=== PATIENT | male | born 1965 | race Caucasian/White ===

== ENCOUNTER → 2017-02-06 | Outpatient (CLI) | payer MEDICARE ==
[2017-02-06 11:12] VITALS: BP 145/84; PULSE 56; RESP 16; TEMP 96.8; BMI 29.5
--- NOTE | 2017-03-12 01:19 | P.PN ---
Progress Note - Text DATE OF SERVICE: 02/06/2017 CHIEF COMPLAINT: Bariatric assessment. HISTORY OF PRESENT ILLNESS: Blaise Torres is a 52-year-old gentleman last seen [facility] almost one year ago. At his height of 5 foot 10, his ideal body weight is 173 pounds. His highest weight was 360 pounds. Today, he comes in weighing 205 pounds. He has lost 39 pounds since his last evaluation over almost 9 months ago. Overall, he has achieved 83% excess weight loss. His body mass index has been reduced from 51.8 down to 29.5. Total BMI point reduction is 22.3 points. He is only overweight by 32 pounds. Today he comes in mostly without any hunger. He reports stomach upset which has been worse with his weight loss. He feels "My band may have slipped." He is currently at a plateau. Separately, he also reports new onset of blood in his stools and epigastric abdominal pain. His last colonoscopy was a year ago. PAST MEDICAL HISTORY: 1. Chronic pain syndrome. 2. Morbid obesity. 3. Hypertension. 4. Vitamin D deficiency. 5. Asthma. 6. Gastroesophageal reflux disease. 7. Fibromyalgia. 8. Dyslipidemia. 9. Liver disease. 10. Mitral valve prolapse. 11. Anxiety. 12. Bipolar. 13. Depression. PAST SURGICAL HISTORY: 1. Adjustable gastric band placement. 2. Left humeral plate placement. 3. Vasectomy. 4. Cholecystectomy. 5. Colonoscopy. MEDICATIONS: 1. Klonopin. 2. Kenalog. 3. Ativan. 4. Cymbalta. 5. Campral. 6. Topamax. 7. Lyrica. 8. Omeprazole. 9. MS Contin. 10. Oxybutynin. ALLERGIES: BEE VENOM and CELEBREX. SOCIAL HISTORY: Former tobacco user. He does admit to medicinal marijuana use. FAMILY HISTORY: Notable for morbid obesity including bipolar disorder. REVIEW OF SYSTEMS: CONSTITUTIONAL: [place] body weight of 173 pounds. Highest weight of 360 pounds. A total weight loss lifetime of 155 pounds. Percent excess weight loss of 83%. Body mass index reduced from 51.8 down to 29.5. Total BMI point reduction of 22. GENITOURINARY: He had acute renal insufficiency from his medications for which his diuretic has been discontinued. PSYCH: History of psychotic event with recent mental hospitalization within the last 6 to 8 months. GASTROINTESTINAL: Change in bowel habits. Reports increased diarrhea and food intolerance. Has blood in stools. Has increased epigastric abdominal pain. Reports low appetite and denies any hunger. HEENT: No troubles with hearing however, he does wear glasses. ENDOCRINE: No reports of thyroid disorder or diabetes. CARDIOVASCULAR: History of mitral valve prolapse including hypertension and dyslipidemia. He also reports having chest pain requiring hospitalization within the last 9 months. RESPIRATORY: Denies any recent pneumonia, however, does have asthma. MUSCULOSKELETAL: Reports fibromyalgia, including diffuse pain, particularly of the left shoulder. NEURO: History of intermittent headaches. Denies any stroke or seizure disorders. PHYSICAL EXAM: VITAL SIGNS: 96.8, 66, 16, 145/84, 5 foot 10, 205 pounds. Body mass index of 29.5. ABDOMEN: Soft, mild tenderness along the epigastrium. GENERAL: Well-developed pleasant male in no acute distress. SKIN: Eczematous changes noted along the right palmar aspect of the thumb. HEENT: No scleral icterus. Extraocular movements grossly intact. Moist buccal mucosa. NECK: Supple without lymphadenopathy. CHEST: Unlabored respirations with equal bilateral excursions. CARDIOVASCULAR: Regular rate and rhythm. MUSCULOSKELETAL: No clubbing or cyanosis. NEURO: No focal or lateralizing signs. PSYCH: Appropriate affect. Alert and oriented to person, place and time. ASSESSMENT: 1. Morbid obesity due to excess calories, now resolved. 2. Body mass reduced from 51.8 down to 29.5. 3. History of adjustable gastric band. 4. History of acute renal insufficiency from hypertensive medications. 5. Hypertension. 6. Bipolar disorder with recent psychotic episode, stable. 7. Prior history of alcoholism. 8. Change in bowel habits. 9. Personal history of colon polyps. 10. History of intermittent angina. 11. Epigastric abdominal pain. 12. History of gastrointestinal bleed of unclear etiology. 13. Massive weight loss of 155 pounds. PLAN: 1. With his epigastric abdominal pain including gastrointestinal bleed, recommend upper and lower endoscopy. 2. He also had history of colon polyps on his last colonoscopy and warrants further evaluation. 3. He does report potential slippage of his band with his epigastric abdominal pain for which upper endoscopy is advised. 4. Recommend a bariatric metabolic panel followup. 5. Recommend followup upon completion of his upper endoscopy including bariatric labs.
== END | disposition home or self-care (01) ==
LOC: BARWHC3 09:42
PROVIDERS: ATTEND Surgery Plastic and Reconstructive Surgery
DX: Z48.815 Encounter for surgical aftercare following surgery on the digestive system (principal); Z98.84 Bariatric surgery status; Z68.29 Body mass index [BMI] 29.0-29.9, adult; I10 Essential (primary) hypertension; F31.9 Bipolar disorder, unspecified; F23 Brief psychotic disorder; F10.21 Alcohol dependence, in remission; Z87.898 Personal history of other specified conditions; I20.8 Other forms of angina pectoris; R10.13 Epigastric pain; Z79.899 Other long term (current) drug therapy; L30.9 Dermatitis, unspecified; M79.7 Fibromyalgia; R51 Headache; G89.4 Chronic pain syndrome; J45.909 Unspecified asthma, uncomplicated; I34.1 Nonrheumatic mitral (valve) prolapse; F41.9 Anxiety disorder, unspecified; K21.9 Gastro-esophageal reflux disease without esophagitis; Z88.8 Allergy status to other drugs, medicaments and biological substances; Z91.030 Bee allergy status; F12.90 Cannabis use, unspecified, uncomplicated; R19.7 Diarrhea, unspecified; K92.1 Melena; T50.995A Adverse effect of other drugs, medicaments and biological substances, initial encounter; N28.89 Other specified disorders of kidney and ureter
CPT/HCPCS: 99211

== ENCOUNTER → 2017-03-05 | Day surgery (SDC) | payer MEDICARE ==
[2017-03-03 10:31] VITALS: BMI 28.7
[~2017-03-05] MED LIST: LACTATED RINGERS 1,000 ML IV SCH; LIDOCAINE 1% 20 ML VIAL (10MG/ML) FOR IV START INTRADERMA ONE; LIDOCAINE 1% INJ 10MG/ML (20 ML MDV) ONE; PROPOFOL 10 MG/ML 20 ML VIAL IV ONE
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
[2017-03-05 09:19] VITALS: TEMP 97.6
[2017-03-05 10:37] VITALS: RESP 18
--- NOTE | 2017-03-05 10:41 | P.PCN ---
Date of Procedure: 03/05/17 Description of Procedure: PREOPERATIVE DIAGNOSES: 1. Personal history of colon polyps. 2. Change in bowel habits. POSTOPERATIVE DIAGNOSES: 1. Personal history of colon polyps. 2. Change in bowel habits. PROCEDURE PERFORMED: 1. Colonoscopy to the ileocecal valve and appendiceal orifice. SURGEON: Dr. Josefa Alfaro. ANESTHESIA: MAC. INDICATIONS: The patient is a 52-year-old gentleman whose last colonoscopy was in 2016. Has a personal history of multiple colon polyps. Additionally he comes in now with change in bowel habits. Benefits and risks were described. Benefits and risks were described. Informed consent was obtained. DESCRIPTION: Patient was brought to the endoscopy suite and laid in the left lateral decubitus position. After adequate IV sedation, the rectum was examined with 2% lidocaine jelly. The rectal tone was within normal limits. The prostate was smooth and without nodularity. No lesions were palpated in the rectal vault. Olympus colonoscope was advanced until the ileocecal valve and appendiceal orifice were clearly viewed. The prep was excellent with clear visualization of mucosal mike. Slowly, the scope was withdrawn to inspect each mucosal fold. No evidence of active diverticulosis were encountered or bleeding. Retroflexion of the scope confirmed no evidence of prolapsed internal hemorrhoids. The colon was desufflated. The patient tolerated the procedure well. FINDINGS: 1. Prostate unremarkable. 2. No focal colitis. 3. No prolapsed internal/external hemorrhoids. 4. Prostate unremarkable. 5. No diverticulosis. RECOMMENDATIONS: 1. Follow-up colonoscopy in 5 years, 2021.
[2017-03-05 10:53] VITALS: BP 120/78; PULSE 89
--- NOTE | 2017-03-05 20:06 | P.PCN ---
Date of Procedure: 03/05/17 Description of Procedure: PREOPERATIVE DIAGNOSIS: Gastroesophageal reflux disease. History of adjustable gastric band. POSTOPERATIVE DIAGNOSIS: Gastroesophageal reflux disease. History of adjustable gastric band. Diaphragmatic hiatal hernia. Diffuse gastritis. Duodenitis. Posterior gastric prolapse along gastric band. OPERATION: Esophagogastroduodenoscopy with biopsies along antrum and duodenum. SURGEON: Josefa Alfaro MD ANESTHESIA: MAC. INDICATIONS: The patient is a 52-year-old male who presents with a history of reflux disease. Benefits and risks of the procedure were described. Informed consent was obtained. DESCRIPTION: The patient was brought into the endoscopy suite and laid in the left lateral decubitus position. An Olympus gastroscope was passed along the posterior oropharynx down to the distal esophagus where the squamocolumnar junction was encountered at 35 cm from the incisors. The stomach was entered and minimal bile reflux was found. Additional findings are listed below. Biopsies with cold forceps were obtained of the antrum. The first through third portion of the duodenum was examined and remarkable for duodenitis. Moderate gastritis was found along the antrum. Retroflexion of the scope confirmed Hill grade II lower esophageal valve. A large gastric pouch with posterior gastric prolapse was identified. The squamocolumnar junction demostrated acute LA grade B erosive esophagitis. The stomach was desufflated. The patient tolerated the procedure well. FINDINGS: Squamocolumnar junction 43 cm from the incisors. Diaphragmatic hiatal hernia, 3 cm. Squamocolumnar junction 40 cm from the incisors. Diffuse gastritis along the antrum. Posterior gastric prolapse along gastric band. Hill grade II lower esophageal valve. LA grade B erosive esophagitis. Active duodenitis. RECOMMENDATIONS: Further recommendations pending results of pathology report. Upper endoscopy as needed. Plan - Discharge Summary Discharge Medication List Triamcinolone 0.1% Cream [Kenalog] 1 applic TOPICAL BID PRN 04/05/15 [History] DULoxetine HCL [Cymbalta] 60 mg PO BID 06/08/15 [History] clonazePAM [KlonoPIN] 0.5 mg PO DAILY PRN 02/07/16 [History] LORazepam [Ativan] 1 mg PO BID 08/01/16 [History] Oxybutynin Xl [Ditropan XL] 5 mg PO DAILY #30 tab.er.24 02/13/17 [Rx] Morphine Sulfate [Ms Contin] 15 mg PO BID 03/03/17 [History] Pregabalin [Lyrica] 50 mg PO BID 03/03/17 [History] Topiramate [Topamax] 100 mg PO BID 03/03/17 [History] Omeprazole 40 mg PO DAILY #90 capsule. 03/12/17 [Rx] Meloxicam [Mobic] 15 mg PO DAILY 04/03/17 [History] Follow up Appointment(s)/Referral(s): Josefa Alfaro MD [STAFF PHYSICIAN] - 03/12/17 Patient Instructions/Handouts: *[facility] - (Anesthesia) Endoscopy Discharge Instructions, Gastritis (GEN), Colonoscopy (DC), Gastroesophageal Reflux Disease (DC), Upper Endoscopy (DC) Discharge Disposition: HOME SELF-CARE
== END | disposition home or self-care (01) ==
LOC: ORWHC2ENDO 09:01
PROVIDERS: ATTEND Surgery Plastic and Reconstructive Surgery
DX: K29.50 Unspecified chronic gastritis without bleeding (principal); B96.81 Helicobacter pylori [H. pylori] as the cause of diseases classified elsewhere; K21.9 Gastro-esophageal reflux disease without esophagitis; M79.7 Fibromyalgia; Z87.891 Personal history of nicotine dependence; I10 Essential (primary) hypertension; E78.5 Hyperlipidemia, unspecified; M19.90 Unspecified osteoarthritis, unspecified site; Z86.010 Personal history of colon polyps; G47.33 Obstructive sleep apnea (adult) (pediatric); Z99.89 Dependence on other enabling machines and devices; F39 Unspecified mood [affective] disorder; Z79.891 Long term (current) use of opiate analgesic; Z79.899 Other long term (current) drug therapy
CPT/HCPCS: 88305; 88342; 45378; 43239; J2001; J2704

== ENCOUNTER → 2017-03-12 | Outpatient (CLI) | payer MEDICARE ==
[2017-03-12 15:14] VITALS: BP 133/78; PULSE 57; RESP 16; TEMP 97.8; BMI 29.2
--- NOTE | 2017-04-07 20:53 | P.PN ---
Progress Note - Text DATE OF SERVICE: 03/12/2017 CHIEF COMPLAINT: Bariatric assessment. HISTORY OF PRESENT ILLNESS: Blaise Torres is a 52-year-old gentleman with long-standing history of adjustable gastric band. He had returned back to the [facility] a little over a month ago complaining of new onset epigastric abdominal pain including worsening gastroesophageal reflux disease. He reports "I feel my band may have slipped." He just completed an upper endoscopy. Findings include a dilated gastric pouch. Additionally, features of gastroesophageal reflux disease was also identified. Since his procedure, he comes in with similar complaints. PAST MEDICAL HISTORY: 1. Chronic pain syndrome. 2. Morbid obesity. 3. Hypertension. 4. Vitamin D deficiency. 5. Asthma. 6. Gastroesophageal reflux disease. 7. Fibromyalgia. 8. Dyslipidemia. 9. Liver disease. 10. Mitral valve prolapse. 11. Anxiety. 12. Bipolar disorder. 13. Depression. PAST SURGICAL HISTORY: 1. Adjustable gastric band placement. 2. Left humeral plate placement. 3. Vasectomy. 4. Cholecystectomy. 5. Colonoscopy. 6. Upper endoscopy. MEDICATIONS: 1. Klonopin. 2. Kenalog. 3. Ativan. 4. Cymbalta. 5. Campral. 6. Topamax. 7. Lyrica. 8. Omeprazole. 9. MS Contin. 10. Oxybutynin. ALLERGIES: BEE VENOM and CELEBREX. SOCIAL HISTORY: Former tobacco user. He does admit to medicinal marijuana use. FAMILY HISTORY: Notable for morbid obesity including bipolar disorder. REVIEW OF SYSTEMS: CONSTITUTIONAL: [place] body weight of 173 pounds. Highest weight of 360 pounds. Present weight of 203 pounds. Lifetime maintained weight loss of 157 pounds. He has lost 2 pounds in one month. Body mass index is reduced from 51.8 down to 29.2. Total BMI point reduction of 22.5. He is only overweight by 30 pounds. Percent excess weight loss of 84% achieved. GASTROINTESTINAL: Has worsening gastroesophageal reflux disease. GENITOURINARY: He had acute renal insufficiency from his medications for which his diuretic has been discontinued. PSYCH: History of psychotic event with recent mental hospitalization within the last 6 to 8 months. HEENT: No troubles with hearing however, he does wear glasses. ENDOCRINE: No reports of thyroid disorder or diabetes. CARDIOVASCULAR: History of mitral valve prolapse including hypertension and dyslipidemia. He also reports having chest pain requiring hospitalization within the last 9 months. RESPIRATORY: Denies any recent pneumonia, however, does have asthma. MUSCULOSKELETAL: Reports fibromyalgia, including diffuse pain, particularly of the left shoulder. NEURO: History of intermittent headaches. Denies any stroke or seizure disorders. PHYSICAL EXAM: VITAL SIGNS: 97.8, 57, 16, 133/78, 5 foot 10, 203 pounds. Body mass index 29.2. ABDOMEN: Soft, mild tenderness along the epigastrium. Port without palpable tenderness along the port site. GENERAL: Well-developed pleasant male in no acute distress. HEENT: No scleral icterus. Extraocular movements grossly intact. Moist buccal mucosa. NECK: Supple without lymphadenopathy. CHEST: Unlabored respirations with equal bilateral excursions. CARDIOVASCULAR: Regular rate and rhythm. MUSCULOSKELETAL: No clubbing or cyanosis. NEURO: No focal or lateralizing signs. PSYCH: Appropriate affect. Alert and oriented to person, place and time. STUDIES: Upper endoscopy completed consistent with a posterior gastric prolapse. PATHOLOGY: Pathology consistent with chronic active gastritis and positive H. pylori gastritis. ASSESSMENT: 1. Morbid obesity due to excess calories, now resolved. 2. Body mass index reduced from 51.8 down to 29.2. 3. History of adjustable gastric band. 4. Helicobacter pylori gastritis. 5. Epigastric abdominal pain. PLAN: 1. He has a mechanical problem with his band whereby gastric prolapse was identified upon upper endoscopy. Also recommend upper GI swallow. 2. As he reports burning sensation this is likely also secondary to H. pylori gastritis. Triple treatment including omeprazole, Biaxin and clarithromycin was written on his behalf for at least 2 weeks course. 3. Alternatives including removing fluid out of his band was also described; however, that puts him at risk for moderate weight gain. We have discussed alternatives whereby treatment of H. pylori gastritis is deemed necessary. 4. He has also reported previous troubles with this band with prior revisions for which he would like to look for alternatives for weight loss options. Again, as he has mechanical problem with his band, surgical correction such as revision to another procedure may be amenable, however only after treatment of H. pylori gastritis and symptom resolution. 5. He also completed a lower endoscopy for history of colon polyps for which findings were negative for additional polyps as a result recommend follow-up for his colonoscopy in 5 years in 2021.
== END | disposition home or self-care (01) ==
LOC: BARWHC3 14:08
PROVIDERS: ATTEND Surgery Plastic and Reconstructive Surgery
DX: Z48.815 Encounter for surgical aftercare following surgery on the digestive system (principal); F12.90 Cannabis use, unspecified, uncomplicated; Z68.29 Body mass index [BMI] 29.0-29.9, adult; K29.60 Other gastritis without bleeding; B96.81 Helicobacter pylori [H. pylori] as the cause of diseases classified elsewhere; K31.89 Other diseases of stomach and duodenum; T85.9XXA Unspecified complication of internal prosthetic device, implant and graft, initial encounter; Z72.0 Tobacco use; Z98.84 Bariatric surgery status; Z88.8 Allergy status to other drugs, medicaments and biological substances; Z91.030 Bee allergy status; K21.9 Gastro-esophageal reflux disease without esophagitis; G89.4 Chronic pain syndrome; F41.9 Anxiety disorder, unspecified; M79.7 Fibromyalgia; F31.9 Bipolar disorder, unspecified
CPT/HCPCS: 99211

== ENCOUNTER 2017-04-07 06:13 | Inpatient (IN) | payer MEDICARE ==
[2017-04-03 12:15] VITALS: BMI 28.7
[~2017-04-07 06:13] MED LIST changes: +DEXAMETHASONE SOD PHOSPHATE 10 MG/ML 1 ML VIAL IV ONE; -LIDOCAINE 1% 20 ML VIAL (10MG/ML) FOR IV START INTRADERMA ONE; -LIDOCAINE 1% INJ 10MG/ML (20 ML MDV) ONE; +ONDANSETRON 4 MG/2 ML VIAL IVP ONE; -PROPOFOL 10 MG/ML 20 ML VIAL IV ONE; +SCOPOLAMINE 1.5MG/72HR PATCH TRANSDERM ONE; +ceFAZolin 2 GM in SODIUM CHLORIDE 0.9% 100 ML IVPB ONE
[2017-04-07 06:41] VITALS: RESP 16
[2017-04-07] MEDS ORDERED: LIDOCAINE 1% 20 ML VIAL (10MG/ML) FOR IV START INTRADERMA ONE (07:04)
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
[2017-04-07] MEDS ORDERED: PROPOFOL 10 MG/ML 20 ML VIAL IV ONE (07:34)
[2017-04-07] MEDS ORDERED: NEOSTIGMINE 1 MG/ML 10 ML VIAL ONE (07:34)
[2017-04-07] MEDS ORDERED: MIDAZOLAM 2 MG/2 ML VIAL ONE (07:34)
[2017-04-07] MEDS ORDERED: SUCCINYLCHOLINE CHLORIDE 100 MG/5 ML SYR IV ONE (07:34)
[2017-04-07] MEDS ORDERED: GLYCOPYRROLATE 0.2 MG/ML 2 ML VIAL ONE (07:34)
[2017-04-07] MEDS ORDERED: fentaNYL (PF) 50 MCG/ML 2 ML AMP ONE (07:34)
[2017-04-07] MEDS ORDERED: ATROPINE SULFATE 0.4 MG/ML 1 ML VIAL ONE (07:34)
[2017-04-07] MEDS ORDERED: LIDOCAINE 1% INJ 10MG/ML (20 ML MDV) ONE (07:34)
[2017-04-07] MEDS ORDERED: ROCURONIUM BROMIDE 10 MG/ML 10 ML VIAL IV ONE (07:34)
[2017-04-07] MEDS ORDERED: ePHEDrine 50 MG/ML 1 ML AMP ONE (07:34)
[2017-04-07] MEDS ORDERED: BUPIVACAIN-EPI 0.25%-1:200,000 30 ML VIAL SQ ONE (07:54)
--- NOTE | 2017-04-07 08:56 | P.OP ---
Date of Procedure: 04/07/17 Description of Procedure: SURGEON: DARLEEN GASTELUM MD ACTIVITY THERAPY SPECIALIST: HEIDY COFFEY PREOPERATIVE DIAGNOSES: 1. Morbid obesity due to excess calories, now resolved. 2. Body mass reduced from 51.8 down to 28.7. 3. History of adjustable gastric band. 4. History of acute renal insufficiency from hypertensive medications. 5. Hypertension. 6. Bipolar disorder with recent psychotic episode, stable. 7. Prior history of alcoholism. 8. Change in bowel habits. 9. Personal history of colon polyps. 10. History of intermittent angina. 11. Epigastric abdominal pain. 12. History of gastrointestinal bleed of unclear etiology. 13. Massive weight loss of 155 pounds. 14. Gastric band prolapse, posterior. 15. History of H. pylori gastritis. POSTOPERATIVE DIAGNOSES: 1. Morbid obesity due to excess calories, now resolved. 2. Body mass reduced from 51.8 down to 28.7. 3. History of adjustable gastric band. 4. History of acute renal insufficiency from hypertensive medications. 5. Hypertension. 6. Bipolar disorder with recent psychotic episode, stable. 7. Prior history of alcoholism. 8. Change in bowel habits. 9. Personal history of colon polyps. 10. History of intermittent angina. 11. Epigastric abdominal pain. 12. History of gastrointestinal bleed of unclear etiology. 13. Massive weight loss of 155 pounds. 14. Gastric band prolapse, posterior. 15. History of H. pylori gastritis. 16. Early fracture of gastric port tubing along fascia. OPERATION: 1. Laparoscopic removal of adjustable gastric band and all components. 2. Intraoperative esophagogastroduodenoscopy with cold forceps biopsies along antrum. ANESTHESIA: General with 60mL 0.25% Sensorcaine with epinephrine. ESTIMATED BLOOD LOSS: 2 mL SPECIMENS REMOVED: Adjustable gastric band and components. COMPLICATIONS: None. INDICATIONS: The patient is a 52-year-old male who presents with prior history of adjustable gastric band. Diagnostic studies were consistent with posterior gastric prolapse as well as severe epigastric abdominal pain. Surgical options were described including revision versus removal of his band. As he has persistent pain and discomfort from the band, he had elected for removal of the adjustable gastric band and port including all components. Benefits and risks of the procedure were described. Informed consent was obtained. DESCRIPTION: The patient was brought into the operating room and laid in supine position. Chemical DVT prophylaxis were given. Patient was brought into the operating room, transferred a split-leg table. After general induction, which was uncomplicated, the abdomen was prepped and draped in standard sterile fashion. The abdomen was prepped and draped in standard sterile fashion using ChloraPrep as well as Ioban draping. Prior to incision, a timeout protocol was confirmed with the surgical team regarding patient's name, procedure to be performed, including preoperative medications. A transverse incision was made approximately 18.5 cm distal to the xiphoid off to the left of the midline from his prior cicatrix. A 0 degree 5 mm trocar entry was performed and entered into the peritoneal cavity. The abdomen was insufflated to 15 mmHg pressure, which he tolerated well. Diagnostic laparoscopy demonstrated no hepatomegaly or fatty liver disease. The port was palpated at the lateral left costal margin and the band was found underneath the liver. A 15 mm port was placed along the left costal margin. Next a 5 mm port was placed at the left midclavicular line. The patient was placed in steep reverse Trendelenburg position. The port was followed with its tubing to the actual band. The gastrohepatic ligament was actually scarred from her prior surgery. The posterior portion of the stomach was prolapsed posteriorly around the ALLERGAN band. Using electro-Bovie cautery, the cicatrix of the port was incised. The band was then freed. The band was unbuckled and cut. The tubing was cut approximately 5 cm distal to the actual adapter. The band was removed in total without injury to the stomach. Hemostasis was excellent. The port was removed from the abdominal cavity via the 15 mm port. Next, attention was brought to the abdominal wall where the lap band port was palpated. An incision was made over the prominence of the port using a #11 blade. Skin was localized with anesthetic. Electro-Bovie cautery was used to enter the capsule around the port. The sutures were cut and the port was removed in total along with the tubing. The tubing was inspected with early fracture of the port tubing along the entry port at the fascia and abdominal cavity secondary to acute angulation. Diagnostic laparoscopy demonstrated complete removal of all foreign body. I then went to the head of the bed to perform intraoperative esophagogastroduodenoscopy to evaluate for gastritis and any full thickness injury to the stomach. An Olympus gastroscope was passed from the posterior oropharynx down to the esophagus, where the squamocolumnar junction was found LA grade A erosive esophagitis, chronic changes. The stomach was entered and bile reflux was found as aspirated. Chronic gastritis was found along the antrum without gastric ulcers or duodenitis or duodenal ulcers. Retroflexion of the scope confirmed a Hill grade 2 lower esophageal valve. No full-thickness erosion from the prior band was encountered. No blood was found within the stomach. Mild gastritis with identified and cold forceps biopsies obtained along the antrum. The stomach was desufflated. The patient tolerated the procedure well. Again, no evidence of leak was encountered from the removal of the band. Along the left upper quadrant 15 mm port site, Beto Stewart 0 Vicryl sutures were used to close the fascia. I then went back to the patient's bedside after re-scrubbing. All instruments and pneumoperitoneum were evacuated from the abdominal cavity. The port extraction site was hemostatic. The port site was irrigated using normal saline and hydrogen peroxide approximately, 50 mL. The skin was closed in layers using 0-Vicryl for the deep dermis and subcutaneous tissue. The rest of the incisions were reapproximated using 4-0 Monocryl in a subcuticular interrupted fashion. Optifoam dressing was placed over the port extraction site and along the left upper quadrant to decrease risk for surgical site infection. At the end of the procedure, needle, sponge and instrument count was verified correct by the land survey technician. The patient had tolerated the procedure well. An abdominal binder was placed. The patient was transferred to Postanesthesia Care Unit in stable condition. Postoperative findings were discussed with the patient's family who were pleased with the level of care. FINDINGS: 1. Posterior gastric prolapse. 2. LA grade A erosive esophagitis chronic. 3. Hill grade 2 lower esophageal valve. 4. No evidence of bilateral inguinal hernias. 5. Fracture of gastric port and tubing from acute angulation along the entry point of the abdominal wall. Plan - Discharge Summary Discharge Medication List Triamcinolone 0.1% Cream [Kenalog] 1 applic TOPICAL BID PRN 04/05/15 [History] DULoxetine HCL [Cymbalta] 60 mg PO BID 06/08/15 [History] clonazePAM [KlonoPIN] 0.5 mg PO DAILY PRN 02/07/16 [History] LORazepam [Ativan] 1 mg PO BID 08/01/16 [History] Oxybutynin Xl [Ditropan XL] 5 mg PO DAILY #30 tab.er.24 02/13/17 [Rx] Morphine Sulfate [Ms Contin] 15 mg PO BID 03/03/17 [History] Pregabalin [Lyrica] 50 mg PO BID 03/03/17 [History] Topiramate [Topamax] 100 mg PO BID 03/03/17 [History] Omeprazole 40 mg PO DAILY #90 capsule. 03/12/17 [Rx] Meloxicam [Mobic] 15 mg PO DAILY 04/03/17 [History]
[2017-04-07] MEDS ORDERED: NALOXONE 0.4 MG/ML 1 ML VIAL IV PRN (09:01)
[2017-04-07] MEDS ORDERED: ONDANSETRON 4 MG/2 ML VIAL IVP PRN (09:01)
[2017-04-07] MEDS ORDERED: METOCLOPRAMIDE 5 MG/ML 2 ML VIAL IVP PRN (09:01)
--- NOTE | 2017-04-07 09:01 | P.DS ---
Providers Date of admission: 04/07/17 06:13 Expected date of discharge: 04/07/17 Attending physician: Josefa Alfaro Primary care physician: Yassine Hansen - Discharge Diagnosis(es) (1) H/O laparoscopic adjustable gastric banding Current Visit: Yes Status: Acute (2) Complications of bariatric procedures Current Visit: Yes Status: Acute (3) Epigastric abdominal pain Current Visit: Yes Status: Acute (4) Seizure disorder Current Visit: Yes Status: Acute (5) Hypertension Current Visit: Yes Status: Acute Hospital Course: POSTOPERATIVE DIAGNOSES: 1. Morbid obesity due to excess calories, now resolved. 2. Body mass reduced from 51.8 down to 28.7. 3. History of adjustable gastric band. 4. History of acute renal insufficiency from hypertensive medications. 5. Hypertension. 6. Bipolar disorder with recent psychotic episode, stable. 7. Prior history of alcoholism. 8. Change in bowel habits. 9. Personal history of colon polyps. 10. History of intermittent angina. 11. Epigastric abdominal pain. 12. History of gastrointestinal bleed of unclear etiology. 13. Massive weight loss of 155 pounds. 14. Gastric band prolapse, posterior. 15. History of H. pylori gastritis. 16. Early fracture of gastric port tubing along fascia. INDICATIONS: The patient is a 52-year-old male who presents with prior history of adjustable gastric band. Diagnostic studies were consistent with posterior gastric prolapse as well as severe epigastric abdominal pain. Surgical options were described including revision versus removal of his band. As he has persistent pain and discomfort from the band, he had elected for removal of the adjustable gastric band and port including all components. Benefits and risks of the procedure were described. Informed consent was obtained. Postoperatively, he was tolerating diet. His pain was well-controlled. Pertinent Studies: None. Procedures: OPERATION: 1. Laparoscopic removal of adjustable gastric band and all components. 2. Intraoperative esophagogastroduodenoscopy with cold forceps biopsies along antrum. Patient Condition at Discharge: Good Plan - Discharge Summary New Discharge Prescriptions: Hydrocodone/Acetaminophen [[place] 5-325] 1 - 2 each PO Q6HR PRN #30 tab PRN Reason: Pain Discharge Medication List Triamcinolone 0.1% Cream [Kenalog] 1 applic TOPICAL BID PRN 04/05/15 [History] DULoxetine HCL [Cymbalta] 60 mg PO BID 06/08/15 [History] clonazePAM [KlonoPIN] 0.5 mg PO DAILY PRN 02/07/16 [History] LORazepam [Ativan] 1 mg PO BID 08/01/16 [History] Oxybutynin Xl [Ditropan XL] 5 mg PO DAILY #30 tab.er.24 02/13/17 [Rx] Morphine Sulfate [Ms Contin] 15 mg PO BID 03/03/17 [History] Pregabalin [Lyrica] 50 mg PO BID 03/03/17 [History] Topiramate [Topamax] 100 mg PO BID 03/03/17 [History] Omeprazole 40 mg PO DAILY #90 capsule.dr 03/12/17 [Rx] Meloxicam [Mobic] 15 mg PO DAILY 04/03/17 [History] Hydrocodone/Acetaminophen [[place] 5-325] 1 - 2 each PO Q6HR PRN #30 tab 04/07/17 [Rx] Follow up Appointment(s)/Referral(s): Josefa Alfaro MD [STAFF PHYSICIAN] - 04/10/17 (Bariatric center) Patient Instructions/Handouts: Abdominal Binder (GEN), Exploratory Laparoscopy (DC) Activity/Diet/Wound Care/Special Instructions: No lifting or 4 pounds in 4 weeks. May shower. No bath tub soaks. Where abdominal binder at all times. Discharge Disposition: HOME SELF-CARE
[2017-04-07] MEDS ORDERED: clonazePAM 0.5 MG TAB PO PRN (09:02)
[2017-04-07] MEDS ORDERED: TRIAMCINOLONE 0.1% CREAM 80 GM TUBE TOPICAL PRN (09:02)
[2017-04-07] MEDS ORDERED: TAMSULOSIN 0.4 MG CAP.ER.24H PO STA (09:04)
[2017-04-07 09:11] VITALS: TEMP 96.8
[2017-04-07] MEDS: HYDROmorphone 1 MG/ML 1 ML SYRINGE IVP PRN ×2 (09:24→09:39)
[2017-04-07 10:23] VITALS: BP 117/74; PULSE 78
[2017-04-07] MEDS ORDERED: LORazepam 1 MG TAB PO SCH (21:00)
[2017-04-07] MEDS ORDERED: TOPIRAMATE 100 MG TAB PO SCH (21:00)
[2017-04-07] MEDS ORDERED: MORPHINE SULFATE ER 15 MG TABLET PO SCH (21:00)
[2017-04-07] MEDS ORDERED: PREGABALIN 50 MG CAP PO SCH (21:00)
[2017-04-08] MEDS ORDERED: NON-FORMULARY DRUG (Omeprazole [Omeprazole] 40 MG) PO SCH (09:00)
[2017-04-08] MEDS ORDERED: OXYBUTYNIN XL 5 MG TAB.ER.24 PO SCH (09:00)
[2017-04-08] MEDS ORDERED: NON-FORMULARY DRUG (Meloxicam [Mobic] 15 MG) PO SCH (09:00)
== END 2017-04-07 11:13 | disposition home or self-care (01) | DRG 988 ==
LOC: 2ORWHC 06:13
PROVIDERS: ADMIT Surgery Plastic and Reconstructive Surgery; ATTEND Surgery Plastic and Reconstructive Surgery
PROC: 0DP64CZ Removal of Extraluminal Device from Stomach, Percutaneous Endoscopic Approach (ICD-10-PCS; principal; 2017-04-07 07:30)
PROC: 0DB68ZX Excision of Stomach, Via Natural or Artificial Opening Endoscopic, Diagnostic (ICD-10-PCS; principal; 2017-04-07 07:30)
DX: K95.09 Other complications of gastric band procedure (principal); K22.10 Ulcer of esophagus without bleeding; K74.60 Unspecified cirrhosis of liver; F20.9 Schizophrenia, unspecified; K31.89 Other diseases of stomach and duodenum; K21.9 Gastro-esophageal reflux disease without esophagitis; I10 Essential (primary) hypertension; E78.5 Hyperlipidemia, unspecified; F12.90 Cannabis use, unspecified, uncomplicated; E66.3 Overweight; Z68.29 Body mass index [BMI] 29.0-29.9, adult; F31.9 Bipolar disorder, unspecified; F41.0 Panic disorder [episodic paroxysmal anxiety]; G40.909 Epilepsy, unspecified, not intractable, without status epilepticus; G89.4 Chronic pain syndrome; I34.1 Nonrheumatic mitral (valve) prolapse; J45.909 Unspecified asthma, uncomplicated; K29.50 Unspecified chronic gastritis without bleeding; M79.7 Fibromyalgia; Z79.1 Long term (current) use of non-steroidal anti-inflammatories (NSAID); Z79.899 Other long term (current) drug therapy; Z86.010 Personal history of colon polyps; Z86.19 Personal history of other infectious and parasitic diseases; Z87.891 Personal history of nicotine dependence; Z91.5 Personal history of self-harm
CPT/HCPCS: 88305; 88342

== ENCOUNTER → 2017-04-10 | Outpatient (CLI) | payer MEDICARE ==
[2017-04-10 10:09] VITALS: BP 124/82; PULSE 59; RESP 20; TEMP 97; BMI 28.6
--- NOTE | 2017-05-26 23:09 | PN ---
DATE OF SERVICE: 04/10/2017 CHIEF COMPLAINT: Followup band removal. HISTORY OF PRESENT ILLNESS: Blaise Torres is a 52-year-old gentleman who is status post removal of adjustable gastric band on 04/07/2017. He is now postop day #3. His band was removed secondary to chronic abdominal pain including acute gastric band slippage and prolapse. At his height of 5 foot 10, his ideal body weight is 173 pounds. His highest weight was 360 pounds. Today he comes to 199 pounds. He has maintained 161 pound weight loss. Since his last evaluation barely one month ago, he has already lost another 4 pounds. Percent excess weight loss is 86%. Body mass index is reduced from 51.8 down to 28.7. Total BMI point reduction is 23.1. He is only 26 pounds overweight. He denies any acute abdominal pain. He reports improvement in his blood pressure. PHYSICAL EXAM: VITAL SIGNS: 97, 59, 20, 124/82; 5 foot 10, 199 pounds. Body mass index 28.7. ABDOMEN: Soft, nondistended, nontender. Abdominal binder present. No palpable fluid collection. GENERAL: Well-developed pleasant male in no acute distress. HEENT: No scleral icterus. Extraocular movements grossly intact. Moist buccal mucosa. NECK: Supple without lymphadenopathy. CHEST: Unlabored respirations with equal bilateral excursions. CARDIOVASCULAR: Regular rate and rhythm. MUSCULOSKELETAL: No clubbing or cyanosis. NEURO: No focal or lateralizing signs. PSYCH: Appropriate affect. Alert and oriented to person, place and time. ASSESSMENT: 1. Morbid obesity due to excess calories, now resolved. 2. Body mass index reduced from 51.8 down to 28.7. 3. History of removal of adjustable gastric band. PLAN: 1. He may resume regular diet. 2. Recommend follow-up in 3 weeks. 3. His pain is fairly controlled, for which he will follow up with his pain provider as he has a pain contract. ADDENDUM: Pathology report was negative for H pylori gastritis. [facility]
== END | disposition home or self-care (01) ==
LOC: BARWHC3 09:41
PROVIDERS: ATTEND Surgery Plastic and Reconstructive Surgery
DX: Z48.815 Encounter for surgical aftercare following surgery on the digestive system (principal); Z98.84 Bariatric surgery status; Z68.28 Body mass index [BMI] 28.0-28.9, adult
CPT/HCPCS: 99211

== ENCOUNTER 2017-04-21 00:26 | Emergency (ER) | payer MEDICARE ==
[2017-04-21 00:36] VITALS: RESP 18; TEMP 98.9
[2017-04-21] MEDS ORDERED: MORPHINE SULFATE 4 MG/ML SYRINGE IV STA (00:49)
[2017-04-21] MEDS ORDERED: ONDANSETRON 4 MG/2 ML VIAL IVP STA (00:49)
[2017-04-21] MEDS ORDERED: RX INFO: IV CONTRAST WAS GIVEN 1 EACH MISC MISCELLANE PRN (00:49)
[2017-04-21] MEDS ORDERED: SODIUM CHLORIDE 0.9% 1,000 ML IV STA (00:49)
[2017-04-21] MEDS ORDERED: IOHEXOL 350 MG/ML 25 ML BOTTLE (ORAL USE) PO PRN (00:50)
[2017-04-21 01:07] LABS: Aty Lym Flag Moderate; CH 31.9; CHCM 34.8; HCT 39.8 % (39.0-53.0); HDW 2.65; HGB 13.6 gm/dL (13.0-17.5); MCH 31.4 pg (25.0-35.0); MCHC 34.1 g/dL (31.0-37.0); MCV 92.1 fL (80.0-100.0); Mean Platelet Volume 6.6; RBC 4.33 m/uL (4.30-5.90); RDW 13.2 % (11.5-15.5); WBC 7.3 k/uL (3.8-10.6); WBC (Perox) 7.32
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
[2017-04-21 01:16] LABS: INR 0.9 (<1.1); Partial Thromboplastin Time 23.2 sec (22.0-30.0); Prothrombin Time 9.5 sec (9.0-12.0)
[2017-04-21 01:19] LABS: ALT 32 U/L (21-72); AST 23 U/L (17-59); Alkaline Phosphatase 75 U/L (38-126); Amylase 126 U/L (30-110); Anion Gap 10 mmol/L; Blood Urea Nitrogen 12 mg/dL (9-20); Calcium 9.4 mg/dL (8.4-10.2); Carbon Dioxide 25 mmol/L (22-30); Chloride 109 mmol/L (98-107); Glucose 89 mg/dL (74-99); Non-African American GFR(MDRD) >60 (>60 ml/min/1.73 sqM); Potassium 3.5 mmol/L (3.5-5.1); Sodium 144 mmol/L (137-145); Total Bilirubin 0.3 mg/dL (0.2-1.3); Total Protein 6.3 g/dL (6.3-8.2)
[2017-04-21 01:25] LABS: Add Differential Manual Differential
[2017-04-21 01:28] LABS: Manual Review Performed; Nucleated Red Blood Cells 0 /100 WBC (0-0); Total Cells Counted 100
--- NOTE | 2017-04-21 02:37 | CT ---
EXAM: CT Abdomen and Pelvis With Intravenous Contrast CLINICAL HISTORY: Left flank pain. Recently had lap band removed. TECHNIQUE: Axial computed tomography images of the abdomen and pelvis with intravenous contrast. CTDI is 12.4 mGy and DLP is 662 mGy-cm. CTDI is 12. 4 mGy and DLP is 407 mGy-cm. This CT exam was performed using one or more of the following dose reduction techniques: automated exposure control, adjustment of the mA and/or kV according to patient size, and/or use of iterative reconstruction technique. Coronal and sagittal reformatted images were created and reviewed. COMPARISON: CT abdomen pelvis dated 03/29/15. FINDINGS: Lower thorax: Redemonstrated mild distal esophageal wall thickening. ABDOMEN: Liver: Unremarkable. Gallbladder and bile ducts: Cholecystectomy. Pancreas: Unremarkable. Spleen: Unremarkable. Adrenals: Unremarkable. Kidneys and ureters: No ureteral stone or hydronephrosis. Stomach and bowel: Loops of small bowel at the left abdomen demonstrate mild wall thickening. No evidence of bowel obstruction. Appendix: No findings to suggest acute appendicitis. PELVIS: Bladder: Unremarkable. Reproductive: Unremarkable as visualized. ABDOMEN and PELVIS: Intraperitoneal space: No free fluid or free air. Bones/joints: Lumbar spine facet arthropathy. No acute fracture. No dislocation. Soft tissues: Interval removal of a lap band device. There is a 4 cm x 2.5 cm x 4 cm subcutaneous fluid density in the region of the previously seen lap band port. Vasculature: Unremarkable as visualized. No abdominal aortic aneurysm. Lymph nodes: No enlarged lymph nodes. IMPRESSION: 1. Interval removal of a lap band device. There is a 4 cm x 2.5 cm x 4 cm subcutaneous fluid density in the region of the previously seen lap band port. Finding may represent a postoperative seroma/hematoma. Superimposed infection is not excluded. 2. Mild wall thickening at the distal esophagus and gastroesophageal junction may represent esophagitis or other process. 3. Questionable small bowel wall thickening at the left abdomen. Consider enteritis. 3. No bowel obstruction. No free fluid or free air. 4. No ureteral stone or hydronephrosis.
[2017-04-21 02:42] LABS: Appearance,Urine Clear (Clear); Bilirubin,Urine Negative (Negative); Glucose,Urine (UA) Negative (Negative); Ketones,Urine Negative (Negative); Leukocyte Esterase,Urine Negative (Negative); Nitrite,Urine Negative (Negative); Protein,Urine Negative (Negative); Specific Gravity,Urine 1.026 (1.001-1.035); UA Billing (MACRO vs. MICRO) CHEM; Urobilinogen,Urine <2.0 mg/dL (<2.0)
[2017-04-21 02:58] VITALS: BP 122/58; PULSE 69
== END 2017-04-21 02:59 | disposition home or self-care (01) ==
LOC: EC 00:26
DX: K91.872 Postprocedural seroma of a digestive system organ or structure following a digestive system procedure (principal); R11.0 Nausea; R19.7 Diarrhea, unspecified; M79.7 Fibromyalgia; M19.90 Unspecified osteoarthritis, unspecified site; F41.0 Panic disorder [episodic paroxysmal anxiety]; F31.9 Bipolar disorder, unspecified; Z87.891 Personal history of nicotine dependence; Z79.899 Other long term (current) drug therapy; Z88.8 Allergy status to other drugs, medicaments and biological substances; Z91.030 Bee allergy status; Z98.84 Bariatric surgery status; Y83.8 Other surgical procedures as the cause of abnormal reaction of the patient, or of later complication, without mention of misadventure at the time of the procedure
CPT/HCPCS: 36415; 80053; 82150; 83605; 83690; 85025; 85610; 85730; 81003; 87040; 74177; 99284; 96374; 96375; 96361 ×2; J2270; J2405; Q9967

== ENCOUNTER 2017-04-25 11:30 | Emergency (ER) | payer MEDICARE ==
[2017-04-25 11:55] VITALS: TEMP 97.4
[2017-04-25] MEDS ORDERED: SODIUM CHLORIDE 0.9% 1,000 ML IV STA (12:16)
[2017-04-25] MEDS ORDERED: HYDROmorphone 1 MG/ML 1 ML SYRINGE IVP STA (12:16)
[2017-04-25] MEDS ORDERED: ONDANSETRON 4 MG/2 ML VIAL IVP STA (12:16)
[2017-04-25] MEDS ORDERED: RX INFO: IV CONTRAST WAS GIVEN 1 EACH MISC MISCELLANE PRN (12:21)
[2017-04-25 12:56] LABS: ALT 29 U/L (21-72); AST 27 U/L (17-59); Alkaline Phosphatase 68 U/L (38-126); Amylase 120 U/L (30-110); Anion Gap 13 mmol/L; Blood Urea Nitrogen 12 mg/dL (9-20); Calcium 9.7 mg/dL (8.4-10.2); Carbon Dioxide 24 mmol/L (22-30); Chloride 108 mmol/L (98-107); Glucose 92 mg/dL (74-99); Non-African American GFR(MDRD) >60 (>60 ml/min/1.73 sqM); Potassium 4.2 mmol/L (3.5-5.1); Sodium 145 mmol/L (137-145); Total Bilirubin 0.7 mg/dL (0.2-1.3); Total Protein 7.5 g/dL (6.3-8.2)
[2017-04-25 13:06] LABS: Appearance,Urine Clear (Clear); Bilirubin,Urine Negative (Negative); Glucose,Urine (UA) Negative (Negative); Ketones,Urine Negative (Negative); Leukocyte Esterase,Urine Negative (Negative); Nitrite,Urine Negative (Negative); PH, Urine 6.5 (5.0-8.0); Protein,Urine Negative (Negative); Specific Gravity,Urine 1.006 (1.001-1.035); UA Billing (MACRO vs. MICRO) CHEM; Urobilinogen,Urine <2.0 mg/dL (<2.0)
[2017-04-25 13:10] LABS: Partial Thromboplastin Time 22.6 sec (22.0-30.0); Prothrombin Time 9.8 sec (9.0-12.0)
[2017-04-25 13:16] LABS: Aty Lym Flag Moderate; CH 31.9; CHCM 35.1; HDW 2.78; HGB 14.8 gm/dL (13.0-17.5); MCH 31.4 pg (25.0-35.0); MCHC 34.4 g/dL (31.0-37.0); MCV 91.3 fL (80.0-100.0); Mean Platelet Volume 6.7; RBC 4.71 m/uL (4.30-5.90); RDW 13.2 % (11.5-15.5); WBC 6.7 k/uL (3.8-10.6); WBC (Perox) 6.66
[2017-04-25 13:30] LABS: Add Differential Manual Differential
[2017-04-25 13:35] LABS: Manual Review Performed; Nucleated Red Blood Cells 0 /100 WBC (0-0); RBC Morphology Normal; Total Cells Counted 100
--- NOTE | 2017-04-25 13:35 | CT ---
EXAMINATION TYPE: CT abdomen pelvis w con DATE OF EXAM: 04/25/2017 1:11 PM COMPARISON: Prior CT abdomen pelvis March, 4 days prior HISTORY: LUQ pain CT DLP: 1675 mGycm Automated exposure control for dose reduction was used. TECHNIQUE: Helical acquisition of images from the lung bases through the pelvis have been completed. CONTRAST: Performed with Oral Contrast and with IV Contrast, patient injected with 100 ml mL of Omnipaque 300. FINDINGS: Prominence of the distal esophagus is again noted, there may be some local thickening as on prior exam LUNG BASES: No significant abnormality is appreciated. AORTA: No significant abnormality is appreciated. LIVER/GB: Stable, patient is post cholecystectomy, there are mildly prominent intrahepatic biliary du cts PANCREAS: No significant abnormality is seen. SPLEEN: No significant abnormality is seen. ADRENALS: No significant abnormality is seen. KIDNEYS: No significant abnormality is seen. REPRODUCTIVE ORGANS: Prostate is enlarged. There is thickening of the urinary bladder as on prior exa m BOWEL: Some fluid-filled loops of small bowel are noted. No evident obstruction. FREE AIR: No Free Air visible. ASCITES: None visible. PELVIC ADENOPATHY: None visualized. RETROPERITONEAL ADENOPATHY: No Retroperitoneal Adenopathy visible. Within the subcutaneous fat anteriorly there is fluid collection likely seroma status post port remov al OSSEOUS STRUCTURES: Stable IMPRESSION: NO SIGNIFICANT INTERVAL CHANGE. CORRELATE FOR POSSIBLE ENTERITIS. DISTAL ESOPHAGEAL WALL THICKENING I S DESCRIBED. PROBABLE SUBCUTANEOUS SEROMA, CORRELATE TO EXCLUDE INFECTION.
[2017-04-25 15:07] VITALS: BP 138/88; PULSE 50; RESP 18
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
== END 2017-04-25 16:57 | disposition left against medical advice (07) ==
LOC: EC 11:30
DX: R10.13 Epigastric pain (principal); R10.12 Left upper quadrant pain; K22.8 Other specified diseases of esophagus; M79.7 Fibromyalgia; F41.0 Panic disorder [episodic paroxysmal anxiety]; F31.9 Bipolar disorder, unspecified; Z87.891 Personal history of nicotine dependence; Z79.899 Other long term (current) drug therapy; Z91.030 Bee allergy status; Z88.8 Allergy status to other drugs, medicaments and biological substances; Z86.69 Personal history of other diseases of the nervous system and sense organs; Z98.84 Bariatric surgery status
CPT/HCPCS: 99284; 96374; 96375; 96361 ×4; 36415; 80053; 82150; 83690; 85025; 85610; 85730; 81003; 74177; J2405; J1170; Q9967

== ENCOUNTER → 2017-04-30 | Outpatient (CLI) | payer MEDICARE ==
--- NOTE | 2017-04-30 17:54 | P.PN ---
Progress Note - Text Patient left and re-scheduled his visit.
--- NOTE | 2017-05-30 15:01 | PN ---
Patient left without being seen. MTDD
== END | disposition home or self-care (01) ==
LOC: BARWHC3 15:42
PROVIDERS: ATTEND Surgery Plastic and Reconstructive Surgery
DX: Z53.9 Procedure and treatment not carried out, unspecified reason (principal)

== ENCOUNTER → 2017-05-01 | Outpatient (CLI) | payer MEDICARE ==
[2017-05-01 11:11] VITALS: BP 140/88; PULSE 59; RESP 16; TEMP 96.8; BMI 28.8
--- NOTE | 2017-05-31 18:45 | P.PN ---
Progress Note - Text DATE OF SERVICE: 05/01/2017 CHIEF COMPLAINT: Followup band removal. HISTORY OF PRESENT ILLNESS: Blaise Torres is a 52-year-old gentleman who is status post removal of adjustable gastric band on 04/07/2017. He is now 3 weeks post op. His band was removed secondary to chronic abdominal pain including acute gastric band slippage and prolapse. At his height of 5 foot 10, his ideal body weight is 173 pounds. His highest weight was 360 pounds. Today he comes to 201 pounds. He has maintained 159 pound weight loss. Percent excess weight loss is 85%. Body mass index is reduced from 51.8 down to 28.8. Total BMI point reduction is 22.9. He is 28 pounds overweight. In the last 2 weeks, he had presented to the emergency room for intermittent abdominal pain including chronic back pain. He takes chronic narcotics from his pain specialist. No he presents for further evaluation and management. He also reports pulling sensation of the left lower abdomen. PHYSICAL EXAM: VITAL SIGNS: 201 pounds. Body mass index 28.8. Vital Signs Temp 96.8 F L 05/01/17 11:07 Pulse 59 L 05/01/17 11:07 Resp 16 05/01/17 11:07 BP 140/88 05/01/17 11:07 Pulse Ox ABDOMEN: Soft, focal tenderness along the left lower quadrant. Palpable fluid seroma. No peritonitis. GENERAL: Well-developed pleasant male in no acute distress. HEENT: No scleral icterus. Extraocular movements grossly intact. Moist buccal mucosa. NECK: Supple without lymphadenopathy. CHEST: Unlabored respirations with equal bilateral excursions. CARDIOVASCULAR: Regular rate and rhythm. MUSCULOSKELETAL: No clubbing or cyanosis. NEURO: No focal or lateralizing signs. PSYCH: Appropriate affect. Alert and oriented to person, place and time. ASSESSMENT: 1. Morbid obesity due to excess calories, now resolved. 2. Body mass index reduced from 51.8 down to 28.8. 3. History of removal of adjustable gastric band. 4. Left lower quadrant abdominal pain. 5. Abdominal wall seroma. PLAN: 1. With his pain, may benefit from diagnostic laparoscopy with lysis of adhesions. 2. Recommend drainage of abdominal wall seroma. 3. Also recommend wearing an abdominal binder at all times.
== END | disposition home or self-care (01) ==
LOC: BARWHC3 10:24
PROVIDERS: ATTEND Surgery Plastic and Reconstructive Surgery
DX: Z09 Encounter for follow-up examination after completed treatment for conditions other than malignant neoplasm (principal); E66.01 Morbid (severe) obesity due to excess calories; K91.872 Postprocedural seroma of a digestive system organ or structure following a digestive system procedure; R10.32 Left lower quadrant pain; Z68.28 Body mass index [BMI] 28.0-28.9, adult; Z98.84 Bariatric surgery status
CPT/HCPCS: 99211

== ENCOUNTER 2017-05-05 06:22 | Day surgery (SDC) | payer MEDICARE ==
[2017-05-02 09:12] VITALS: BMI 28.7
[~2017-05-05 06:22] MED LIST changes: +HYDROmorphone 1 MG/ML 1 ML SYRINGE IVP PRN; +LIDOCAINE 1% 20 ML VIAL (10MG/ML) FOR IV START INTRADERMA PRN; +Pre Op ABX Message 1 EACH MISC MISCELLANE ONE; -ceFAZolin 2 GM in SODIUM CHLORIDE 0.9% 100 ML IVPB ONE
[2017-05-05 06:41] VITALS: RESP 16
[2017-05-05] MEDS ORDERED: ACETAMINOPHEN IV (For NPO) 1,000 MG in EMPTY BAG 1 BAG IVPB ONE (06:49)
[2017-05-05] MEDS ORDERED: ceFAZolin 2 GM in SODIUM CHLORIDE 0.9% 100 ML IVPB ONE (06:49)
[2017-05-05] MEDS ORDERED: HEPARIN SODIUM,PORCINE 5,000 UNIT/ML 1 ML VIAL SQ ONE (06:50)
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
[2017-05-05] MEDS ORDERED: SUCCINYLCHOLINE CHLORIDE 100 MG/5 ML SYR IV ONE (07:41)
[2017-05-05] MEDS ORDERED: LIDOCAINE 1% INJ 10MG/ML (20 ML MDV) ONE (07:41)
[2017-05-05] MEDS ORDERED: PROPOFOL 10 MG/ML 20 ML VIAL IV ONE (07:41)
[2017-05-05] MEDS ORDERED: KETOROLAC 30 MG/ML 1 ML VIAL ONE (07:41)
[2017-05-05] MEDS ORDERED: fentaNYL (PF) 50 MCG/ML 2 ML AMP ONE (07:41)
[2017-05-05] MEDS ORDERED: NEOSTIGMINE 1 MG/ML 10 ML VIAL ONE (07:41)
[2017-05-05] MEDS ORDERED: GLYCOPYRROLATE 0.2 MG/ML 2 ML VIAL ONE (07:41)
[2017-05-05] MEDS ORDERED: MIDAZOLAM 2 MG/2 ML VIAL ONE (07:41)
[2017-05-05] MEDS ORDERED: ROCURONIUM BROMIDE 10 MG/ML 10 ML VIAL IV ONE (07:41)
[2017-05-05] MEDS ORDERED: ATROPINE SULFATE 0.4 MG/ML 1 ML VIAL ONE (07:41)
[2017-05-05] MEDS ORDERED: BUPIVACAIN-EPI 0.25%-1:200,000 30 ML VIAL SQ ONE ×2 (08:10)
[2017-05-05] MEDS ORDERED: LACTATED RINGERS 1,000 ML IV ONE (08:15)
[2017-05-05] MEDS ORDERED: NALOXONE 0.4 MG/ML 1 ML VIAL IV PRN (08:35)
[2017-05-05] MEDS ORDERED: ONDANSETRON 4 MG/2 ML VIAL IVP PRN (08:35)
[2017-05-05] MEDS ORDERED: HYDROcodone/APAP 5-325MG 1 EACH TAB PO PRN (08:35)
--- NOTE | 2017-05-05 08:46 | P.PCN ---
Date of Procedure: 05/05/17 Preoperative Diagnosis: Left lower quadrant abdominal pain, left flank pain, history of chronic pain syndrome Postoperative Diagnosis: Same Procedure(s) Performed: Laparoscopic lysis of adhesions, fine-needle aspiration of subcutaneous seroma left upper abdominal wall Implants: Anesthesia: GETA, local (30 mL) Surgeon: Josefa Alfaro Estimated Blood Loss (ml): 1 Pathology: other (Aerobic and anaerobic culture seroma) Condition: stable Disposition: same day Indications for Procedure: Operative Findings: Seroma of the left upper abdominal wall 30 mL drained and sent for culture. Adhesion of the left upper abdomen lysed sharply. Small bowel unremarkable. No pathology identified of the left lower quadrant. No inguinal hernias identified. No acute colitis identified of the descending colon or sigmoid colon. Description of Procedure: Plan - Discharge Summary New Discharge Prescriptions: New Hydrocodone/Acetaminophen [[facility] 5-325] 1 - 2 each PO Q6HR PRN #20 tab PRN Reason: Pain No Action Triamcinolone 0.1% Cream [Kenalog] 1 applic TOPICAL BID PRN PRN Reason: hand pain clonazePAM [KlonoPIN] 0.5 mg PO DAILY PRN PRN Reason: Anxiety LORazepam [Ativan] 1 mg PO BID Morphine Sulfate [Ms Contin] 15 mg PO QID Topiramate [Topamax] 100 mg PO BID Omeprazole 40 mg PO DAILY #90 capsule. Venlafaxine HCl [Effexor] 100 mg PO DAILY Pregabalin [Lyrica] 100 mg PO BID Discharge Medication List Triamcinolone 0.1% Cream [Kenalog] 1 applic TOPICAL BID PRN 04/05/15 [History] clonazePAM [KlonoPIN] 0.5 mg PO DAILY PRN 02/07/16 [History] LORazepam [Ativan] 1 mg PO BID 08/01/16 [History] Morphine Sulfate [Ms Contin] 15 mg PO QID 03/03/17 [History] Topiramate [Topamax] 100 mg PO BID 03/03/17 [History] Omeprazole 40 mg PO DAILY #90 capsule. 03/12/17 [Rx] Pregabalin [Lyrica] 100 mg PO BID 04/25/17 [History] Venlafaxine HCl [Effexor] 100 mg PO DAILY 04/25/17 [History] Hydrocodone/Acetaminophen [[facility] 5-325] 1 - 2 each PO Q6HR PRN #20 tab 05/05/17 [Rx] Follow up Appointment(s)/Referral(s): Josefa Alfaro MD [STAFF PHYSICIAN] - 05/07/17 2:00 pm (Bariatric center) Patient Instructions/Handouts: Exploratory Laparoscopy (DC) Discharge Disposition: HOME SELF-CARE
[2017-05-05 08:57] VITALS: TEMP 97.6
[2017-05-05 10:16] VITALS: BP 132/84; PULSE 63
--- NOTE | 2017-05-05 10:50 | P.OP ---
Date of Procedure: 05/05/17 Preoperative Diagnosis: Postoperative Diagnosis: Procedure(s) Performed: Implants: Indications for Procedure: Operative Findings: Description of Procedure: SURGEON: DARLEEN GASTELUM MD BINITROTOLUENE OPERATOR: None. PREOPERATIVE DIAGNOSES: 1. Left lower quadrant abdominal pain. 2. Left flank pain. 3. History of peritoneal adhesions. 4. Chronic pain syndrome. 5. History of poor peripheral intravenous access. 6. Chronic constipation. 7. Fibromyalgia. 8. Hypertension. 9. Hyperlipidemia. 10. History of chronic back pain. 11. Left upper quadrant abdominal pain. POSTOPERATIVE DIAGNOSES: 1. Left lower quadrant abdominal pain. 2. Left flank pain. 3. History of peritoneal adhesions. 4. Chronic pain syndrome. 5. History of poor peripheral intravenous access. 6. Chronic constipation. 7. Fibromyalgia. 8. Hypertension. 9. Hyperlipidemia. 10. History of chronic back pain. 11. Abdominal wall seroma left upper quadrant. 12. Peritoneal adhesions left upper quadrant. PROCEDURES PERFORMED: 1. Diagnostic laparoscopy. 2. Laparoscopic lysis of adhesions greater omentum to abdominal wall left upper quadrant. 3. Fine-needle aspiration abdominal wall seroma, 3 mL. ANESTHESIA: General with 30 mL 0.25% Marcaine with epinephrine. ESTIMATED BLOOD LOSS: 1 mL. SPECIMENS REMOVED: Aerobic and anaerobic culture of abdominal wall seroma. COMPLICATIONS: None. OPERATIVE FINDINGS: 1. Omental adhesion to abdominal wall, left upper quadrant. 2. Abdominal wall seroma left upper abdomen drain, 3 mL. 3. No bilateral inguinal hernias. 4. No pathology identified at the left lower quadrant or abdominal wall. 5. Descending colon sigmoid colon within normal limits. 6. Small bowel within normal limits. INDICATIONS: The patient is a 52-year-old male with history of chronic pain including fibromyalgia presents with subacute left upper quadrant including left flank and left lower abdominal pain. He status post recent gastric band removal which was unremarkable. Then presented to the emergency room with lower quadrant abdominal pain which radiates to left upper quadrant and left flank. Multiple diagnostic studies were also obtained and only remarkable for seroma as well as gastroenteritis. Given the severity of his symptoms, he elected for surgical intervention. Benefits and risks, including possibility of open technique were described at length. Informed consent was obtained. DESCRIPTION OF PROCEDURE: In the preoperative area, the location of his abdominal pain was marked with indelible marker. Patient was brought to the operating room, laid in supine position. After general induction, the abdomen was prepped and draped in standard sterile fashion. Prior to incision, a timeout protocol was confirmed with surgical team regarding patient's name including procedure to be performed. Preoperative medications including antibiotics were given. Additionally, bilateral SCDs including heparin 5000 units was administered. A 5 mm laparoscopic trocar entry performed of the right upper quadrant after anesthetizing the skin with local anesthetic. Diagnostic laparoscopy demonstrated moderate adhesions no adhesions of the left lower quadrant. The small bowel was unremarkable. The sigmoid colon was unremarkable with exception of diverticulosis without diverticulitis. The bilateral groins were unremarkable for inguinal hernias. The previous area of his band port e xtraction of the left upper quadrant was completely granulated without hernias. Of the left upper quadrant at the chest wall, a greater o mental adhesion was found to the chest wall. The liver surface was completely unremarkable. No gross small bowel dilatation was encountered. Another 5-mm trocar was placed along the right lateral abdominal wall. Using suction Bovie cautery, the adhesion of the left upper abdomen and chest was sharply lysed. The small bowel was investigated using atraumatic graspers especially with special attention to the left lower quadrant at the site of his pain. No internal hernias were identified. Again the abdominal wall was unremarkable. Final inspection of the abdomen demonstrated adequate hemostasis including no enterotomies. All instruments and pneumoperitoneum were evacuated from the abdominal cavity. A total of 30 mL 0.25% Marcaine with epinephrine was infiltrated in all wounds for postop analgesia. Dermabond was applied to the skin after reapproximating the incisions with 4-0 Monocryl as described. Along his previous left upper quadrant incision, a 22-gauge needle was used to aspirate a seroma. 3 mL of fluid was evacuated and sent for aerobic and anaerobic culture. At the end of the procedure, needle, sponge, and instrument count was verified correct by surgical aide. The patient had tolerated the procedure well, was taken to the postanesthesia care unit in stable condition. Intraoperative abdominal films were described and discussed with his family who were overall pleased with the level of care.
== END 2017-05-05 10:43 | disposition home or self-care (01) ==
LOC: OR 06:22
PROVIDERS: ATTEND Surgery Plastic and Reconstructive Surgery
DX: K66.0 Peritoneal adhesions (postprocedural) (postinfection) (principal); L76.34 Postprocedural seroma of skin and subcutaneous tissue following other procedure; K57.30 Diverticulosis of large intestine without perforation or abscess without bleeding; K52.9 Noninfective gastroenteritis and colitis, unspecified; G89.4 Chronic pain syndrome; M79.7 Fibromyalgia; I10 Essential (primary) hypertension; E78.5 Hyperlipidemia, unspecified; M54.9 Dorsalgia, unspecified; K21.9 Gastro-esophageal reflux disease without esophagitis; K76.9 Liver disease, unspecified; M19.90 Unspecified osteoarthritis, unspecified site; G43.909 Migraine, unspecified, not intractable, without status migrainosus; G81.94 Hemiplegia, unspecified affecting left nondominant side; G47.30 Sleep apnea, unspecified; Z98.84 Bariatric surgery status; F41.9 Anxiety disorder, unspecified; F31.9 Bipolar disorder, unspecified; F41.0 Panic disorder [episodic paroxysmal anxiety]; F20.9 Schizophrenia, unspecified; Z91.5 Personal history of self-harm; K74.60 Unspecified cirrhosis of liver; Z79.891 Long term (current) use of opiate analgesic; Z79.899 Other long term (current) drug therapy; Z88.8 Allergy status to other drugs, medicaments and biological substances; Z91.030 Bee allergy status; Z87.891 Personal history of nicotine dependence
CPT/HCPCS: 87070; 87205; 87075; 49329; 10021; J2250; J0461; J1644; J1100; J2710; J0690; J2405; J2001; J3010; J1885; J0131; J0330; J2704

== ENCOUNTER → 2017-05-07 | Outpatient (CLI) | payer MEDICARE ==
[2017-05-07 14:52] VITALS: BP 134/80; PULSE 74; RESP 16; TEMP 98.5; BMI 29.1
--- NOTE | 2017-06-03 15:47 | P.PN ---
Progress Note - Text DATE OF SERVICE: 05/07/2017 CHIEF COMPLAINT: Followup lysis of adhesions. HISTORY OF PRESENT ILLNESS: Blaise Torres is a 52-year-old gentleman who is status post removal of adjustable gastric band on 04/07/2017. He had developed abdominal wall seroma with increasing abdominal pain 3 weeks postop. He reported a pulling sensation with concern of adhesions that could not be excluded. He underwent a diagnostic laparoscopy 2 days ago with drainage of abdominal wall seroma. He reports the abdominal pain is much improved. He still pending a bowel movement. He does report discomfort from recent surgery which is to be expected. Separately he reports increasing trouble with urination as well as urinary retention. He has not seen a urologist in the past. He has history of chronic pain for which she's pending to see his pain provider. His other concerns includes referral to a back specialist. At his height of 5 foot 10, his ideal body weight is 173 pounds. His highest weight was 360 pounds. Today he comes to 203 pounds. He has maintained 157 pound weight loss. Percent excess weight loss is 84%. Body mass index is reduced from 51.8 down to 29.2 Total BMI point reduction is 22.7. He is 30 pounds overweight. PHYSICAL EXAM: VITAL SIGNS: 203 pounds. Body mass index 29.2. Vital Signs Temp 98.5 F 05/07/17 14:49 Pulse 74 05/07/17 14:49 Resp 16 05/07/17 14:49 BP 134/80 05/07/17 14:49 Pulse Ox ABDOMEN: Soft, no palpable fluid collection along the abdominal wall. No peritonitis. Resolved left lower quadrant abdominal pain. Laparoscopic incisions clean dry and intact. GENERAL: Well-developed pleasant male in no acute distress. HEENT: No scleral icterus. Extraocular movements grossly intact. Moist buccal mucosa. NECK: Supple without lymphadenopathy. CHEST: Unlabored respirations with equal bilateral excursions. CARDIOVASCULAR: Regular rate and rhythm. MUSCULOSKELETAL: No clubbing or cyanosis. NEURO: No focal or lateralizing signs. PSYCH: Appropriate affect. Alert and oriented to person, place and time. ASSESSMENT: 1. Morbid obesity due to excess calories, now resolved. 2. Body mass index reduced from 51.8 down to 29.2 3. History of removal of adjustable gastric band. 4. Left lower quadrant abdominal pain, resolved 5. Abdominal wall seroma, resolved. 6. Chronic lower back pain. 7. Constipation. 8. History of obstructive uropathy. PLAN: 1. Recommend evaluation by urologist for obstructive uropathy. 2. He reports chronic lower back pain for which pain injections has been minimally effective. He may benefit from referral to a back specialist. 3. For constipation, recommend MiraLAX. 4. At this time, he may follow-up as needed.
== END | disposition home or self-care (01) ==
LOC: BARWHC3 14:13
PROVIDERS: ATTEND Surgery Plastic and Reconstructive Surgery
DX: Z09 Encounter for follow-up examination after completed treatment for conditions other than malignant neoplasm (principal); K66.0 Peritoneal adhesions (postprocedural) (postinfection); K59.00 Constipation, unspecified; M54.5 Low back pain; G89.29 Other chronic pain; Z87.448 Personal history of other diseases of urinary system; Z98.84 Bariatric surgery status
CPT/HCPCS: 99211

== ENCOUNTER → 2017-05-13 | Outpatient (CLI) | payer MEDICARE ==
--- NOTE | 2017-05-13 15:05 | MR ---
EXAMINATION TYPE: MR lumbar spine wo con DATE OF EXAM: 05/13/2017 COMPARISON: NONE HISTORY: intervertebral disc disorders w/radiculopathy TECHNIQUE: T1 and T2 axial and sagittal images of the lumbar spine are submitted. The lowest verteb ral vertebral body will be considered L5 is there may be a transition segment. FINDINGS: There is no abnormal signal seen within the visualized spinal cord or paraspinal soft tissu es. At L1-2 there is hypertrophic change of the facets but no disc herniation or canal stenosis. No rocío inal encroachment. At L2-3 there is marked hypertrophy of the ligamentum flavum and facet joints with circumferential di sc bulging and mild central stenosis. Mild bilateral foraminal encroachment. At L3-4 there is severe facet arthropathy and hypertrophy of the ligamentum flavum with circumferenti al disc bulging and mild to moderate canal stenosis and bilateral foraminal encroachment. At L4-5 there is circumferential disc bulging greater centrally with facet arthropathy and ligamentum flavum hypertrophy. Moderate canal stenosis with bilateral foraminal encroachment. At L5-S1 there is no disc herniation or canal stenosis. No foraminal encroachment. IMPRESSION: 1. Disc bulging with hypertrophic changes extending from levels L2-L5 result in multilevel foraminal encroachment and canal stenosis as discussed above. Correlate with the numbering system utilized prio r to any intervention as there may be a transition segment.
== END | disposition home or self-care (01) ==
LOC: RADMRIMAIN 08:07
PROVIDERS: ATTEND Physical Medicine & Rehabilitation
DX: M51.26 Other intervertebral disc displacement, lumbar region (principal); M99.73 Connective tissue and disc stenosis of intervertebral foramina of lumbar region
CPT/HCPCS: 72148

== ENCOUNTER → 2017-10-13 | Outpatient (CLI) | payer MEDICARE ==
[2017-10-13 19:23] LABS: ANA w/Reflex to Titer POSITIVE (NEGATIVE)
== END | disposition home or self-care (01) ==
LOC: LABWHC1 10:11
PROVIDERS: ATTEND Psychiatry & Neurology Neurology
DX: M79.7 Fibromyalgia (principal); R41.3 Other amnesia
CPT/HCPCS: 36415; 82306; 82607; 84439; 84443; 85652; 86038; 86039

== ENCOUNTER 2017-12-19 14:28 | Inpatient (IN) | payer MEDICARE ==
[2017-12-19] MEDS ORDERED: LORazepam 1 MG TAB PO PRN (15:53)
[2017-12-19] MEDS ORDERED: MAG HYDROX/AL HYDROX/SIMETH 30 ML CUP PO PRN (15:53)
[2017-12-19] MEDS ORDERED: ACETAMINOPHEN TAB 325 MG TAB PO PRN (15:53)
[2017-12-19] MEDS ORDERED: MAGNESIUM HYDROXIDE 2,400 MG/10 ML CUP PO PRN (15:53)
[2017-12-19] MEDS ORDERED: ZIPRASIDONE 20 MG VIAL IM PRN (15:53)
[2017-12-19] MEDS ORDERED: SENNOSIDES-DOCUSATE SODIUM 1 EACH TAB PO PRN (18:19)
[2017-12-19] MEDS: clonazePAM 1 MG TAB PO SCH (21:12)
[2017-12-19] MEDS: QUEtiapine 100 MG TAB PO SCH (21:12)
[2017-12-19] MEDS: lamoTRIgine 25 MG TAB PO SCH (21:13)
[2017-12-19] MEDS: MEMANTINE 5 MG TAB PO SCH (21:13)
[2017-12-19] MEDS: PREGABALIN 100 MG CAP PO SCH (21:13)
[2017-12-20] MEDS: PANTOPRAZOLE 40 MG TABLET PO SCH (08:54)
[2017-12-20] MEDS: OXYBUTYNIN XL 5 MG TAB.ER.24 PO SCH (08:54)
[2017-12-20] MEDS: lamoTRIgine 25 MG TAB PO SCH ×2 (08:54→21:17)
[2017-12-20] MEDS: MEMANTINE 10 MG TAB PO SCH (08:54)
[2017-12-20] MEDS: PREGABALIN 100 MG CAP PO SCH ×3 (08:56→21:17)
[2017-12-20] MEDS: HYDROcodone/APAP 5-325MG 1 EACH TAB PO PRN ×2 (08:56→21:19)
[2017-12-20 09:07] LABS: HCT 46.8 % (39.0-53.0); HGB 15.9 gm/dL (13.0-17.5); MCH 30.1 pg (25.0-35.0); MCHC 33.9 g/dL (31.0-37.0); MCV 88.6 fL (80.0-100.0); Platelet Count 194 k/uL (150-450); RBC 5.27 m/uL (4.30-5.90); WBC 7.9 k/uL (3.8-10.6)
[2017-12-20] MEDS: VENLAFAXINE HCL ER 150 MG CAP PO SCH (09:19)
[2017-12-20 09:27] LABS: ALT 36 U/L (21-72); AST 25 U/L (17-59); Albumin 4.9 g/dL (3.5-5.0); Alkaline Phosphatase 77 U/L (38-126); Anion Gap 13 mmol/L; Bilirubin, Delta 0.2 mg/dL (0.0-0.2); Bilirubin,Unconjugated 0.5 mg/dL (0.0-1.1); Blood Urea Nitrogen 13 mg/dL (9-20); Calcium 10.4 mg/dL (8.4-10.2); Carbon Dioxide 31 mmol/L (22-30); Chloride 100 mmol/L (98-107); Cholesterol 267 mg/dL (<200); Glucose 140 mg/dL (74-99); HDL Cholesterol 71 mg/dL (40-60); LDL Cholesterol,Calculated 178 mg/dL (0-99); Potassium 4.2 mmol/L (3.5-5.1); Sodium 144 mmol/L (137-145); Total Bilirubin 0.7 mg/dL (0.2-1.3); Total Protein 7.6 g/dL (6.3-8.2); Triglycerides 89 mg/dL (<150)
--- NOTE | 2017-12-20 10:07 | CONS ---
CONSULTATION DATE OF CONSULTATION: 12/19/17 REASON FOR CONSULTATION: Advice regarding hypertension, multiple other medical issues requested by psychiatrist. HISTORY OF PRESENT ILLNESS: This 52-year-old gentleman with past medical history of fibromyalgia, hypertension and hyperlipidemia, liver disease and history of pneumonia being followed by Dr. Hansen in the outpatient setting also had history of bariatric surgery. The patient admitted for psychiatric evaluation. There is no history of fever, rigors or chills. No history of headache, loss of consciousness, seizures. PAST MEDICAL HISTORY: History of hypertension, hyperlipidemia, history of liver disease, history of fibromyalgia, history of bariatric surgery, cholecystectomy. MEDICATIONS: Prior to admission include medications are: 1. Klonopin 1 mg q.h.s. 2. Namenda 5 mg q.h.s. 3. Detrol LA 4 mg daily. 4. Morphine MS-IR 15 mg p.o. every 6 hours p.r.n. 5. Neurontin 300 mg p.o. daily. 6. Namenda 10 mg p.o. 7. Effexor XR 150 mg p.o. 8. Senokot-S 2-4 mg daily p.r.n. 9. Lyrica 100 mg p.o. t.i.d. 10.Omeprazole 40 mg p.o. daily. 11.Lamictal 50 mg p.o. b.i.d. 12.Latuda 60 mg p.o. daily. 13.Seroquel 100 mg q.h.s. 14.Klonopin 1 mg q.h.s. ALLERGIES: HYZAAR, HONEY BEE, CELEBREX, LISINOPRIL. FAMILY HISTORY: History of DVT, lupus in the family. SOCIAL HISTORY: Previous history of smoking. No history of current smoking. No alcohol intake. REVIEW OF SYSTEMS: ENT: No diminished vision or hearing. Cardio system: No angina or palpitations. Respiratory: No cough, no hemoptysis. GI no nausea or vomiting. : No dysuria or retention. Nervous system: No numbness, weakness. Allergy/Immunology: No asthma or hayfever. Musculoskeletal as mentioned earlier. Hematology/Oncology: No history of anemia. Endocrine: No history of diabetes or hypothyroidism. Constitutional: As mentioned earlier. Dermatology: Negative. Rheumatology: Negative. Psychiatric: As mentioned earlier. PHYSICAL EXAM: Patient is alert, oriented x3. The pulse is 74. Blood pressure 142/100, respirations 16, temperature 97.2, pulse ox normal. HEENT: Conjunctivae normal. Oral mucosa moist. Neck is no jugular venous distention. No carotid bruit. No lymph node enlargement. No thyroid enlargement. Cardiovascular system: S1, S2 normal. No S3, no S4. Respiratory: Breath sounds diminished in the bases. No rhonchi and no crackles. ABDOMEN: Soft, nontender. No mass palpable. Legs no edema. No swelling. Central nervous system: Higher functions as mentioned earlier. Cranial nerves 2 thru 12 intact. Moves all four limbs. No focal motor or sensory deficits. Gait is normal. No weakness noted. Lymphatics: No lymph nodes palpable in the neck, axillae or groin. SKIN: No ulcer, rash or bleeding. LABS: At this time shows not available. ASSESSMENT: 1. Hypertension. 2. Hyperlipidemia. 3. Gastroesophageal reflux disease. 4. Fibromyalgia. 5. History of liver disease. 6. History of degenerative joint disease. 7. History of pneumonia. 8. History of bariatric surgery. 9. History of irritable bowel syndrome. 10.History of migraines. 11.History of liver cirrhosis. 12.History hepatitis C. 13.Anxiety, bipolar depression, panic disorder, schizophrenia. 14.Remote history of nicotine dependence. RECOMMENDATIONS AND DISCUSSION: This 52-year-old gentleman who presented with psychiatric evaluation at this time I recommend to continue current management and symptomatic treatment. Otherwise I would recommend resume the home medications and monitor blood pressure closely. Otherwise pain medication may be continued as he was taking at home after checking with the patient's home pharmacy. Otherwise we will follow the patient closely. The patient may be asked to follow up with Dr. Hansen in the office after discharge from the hospital. Thank you Dr. Roman for letting us participate in the care of this patient. MMODL / IJN: [id number] /
[2017-12-20 11:38] LABS: Lymphocytes # (M) 2.21 k/uL (1.0-4.8); Monocytes # (M) 0.24 k/uL (0-1.0); Neutrophils # (M) 5.45 k/uL (1.3-7.7); Neutrophils % (M) 69 %; Nucleated Red Blood Cells 0 /100 WBC (0-0); Total Cells Counted 100
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
[2017-12-20 20:21] LABS: Hemoglobin A1C 5.2 % (4.0-6.0)
[2017-12-20] MEDS: clonazePAM 1 MG TAB PO SCH (21:17)
[2017-12-20] MEDS: MEMANTINE 5 MG TAB PO SCH (21:17)
[2017-12-20] MEDS: QUEtiapine 100 MG TAB PO SCH (21:18)
[2017-12-21] MEDS: VENLAFAXINE HCL ER 150 MG CAP PO SCH (09:36)
[2017-12-21] MEDS: PANTOPRAZOLE 40 MG TABLET PO SCH (09:36)
[2017-12-21] MEDS: MEMANTINE 10 MG TAB PO SCH (09:36)
[2017-12-21] MEDS: lamoTRIgine 25 MG TAB PO SCH ×2 (09:37→21:20)
[2017-12-21] MEDS: OXYBUTYNIN XL 5 MG TAB.ER.24 PO SCH (09:37)
[2017-12-21] MEDS: PREGABALIN 100 MG CAP PO SCH ×3 (09:37→21:20)
[2017-12-21] MEDS: HYDROcodone/APAP 5-325MG 1 EACH TAB PO PRN ×2 (09:38→16:34)
--- NOTE | 2017-12-21 18:53 | PN ---
PROGRESS NOTE DATE OF SERVICE: 12/21/2017. INTERVAL HISTORY: Patient is seen in cross coverage today for Dr. Roman. He reports that he did sleep better last night. He does still seem to be having some hallucinations. He reports having seen a tree in his room and also reports that he is still hearing voices, but they are more mumbling type now. He is found in the lounge watching the football game. MENTAL STATUS EXAM: He is alert, cooperative, overall pleasant, not showing any agitation. His mood overall seems to be improved. He described having seen a tree in his room. Also makes reference to seeing material on the window that he thought was blood, but the staff told him that it was rust. He says he has no reason not to believe them. He reports hearing mumbling type voices. He denies any thoughts of harm to self or others. PLAN: We will titrate Seroquel to 200 mg q.h.s. to help with psychosis type symptoms. We will maintain on Effexor XR, Klonopin as current. Dr. Roman will be initiating care of this patient starting tomorrow. MMODL / IJN: [id number] /
[2017-12-21] MEDS: clonazePAM 1 MG TAB PO SCH (21:20)
[2017-12-21] MEDS: MEMANTINE 5 MG TAB PO SCH (21:20)
[2017-12-21] MEDS: QUEtiapine 200 MG TAB PO SCH (21:20)
[2017-12-22] MEDS: lamoTRIgine 25 MG TAB PO SCH ×2 (08:15→20:37)
[2017-12-22] MEDS: PANTOPRAZOLE 40 MG TABLET PO SCH (08:15)
[2017-12-22] MEDS: PREGABALIN 100 MG CAP PO SCH ×3 (08:15→20:37)
[2017-12-22] MEDS: OXYBUTYNIN XL 5 MG TAB.ER.24 PO SCH (08:15)
[2017-12-22] MEDS: HYDROcodone/APAP 5-325MG 1 EACH TAB PO PRN ×2 (08:16→17:00)
[2017-12-22] MEDS: MEMANTINE 10 MG TAB PO SCH (08:17)
[2017-12-22] MEDS: VENLAFAXINE HCL ER 150 MG CAP PO SCH (08:18)
[2017-12-22] MEDS: clonazePAM 1 MG TAB PO SCH (20:37)
[2017-12-22] MEDS: QUEtiapine 200 MG TAB PO SCH (20:37)
[2017-12-22] MEDS: MEMANTINE 5 MG TAB PO SCH (20:37)
[2017-12-22 23:00] LABS: Appearance,Urine Clear (Clear); Bilirubin,Urine Negative (Negative); Blood,Urine Negative (Negative); Color,Urine Light Yellow; Glucose,Urine (UA) Negative (Negative); Ketones,Urine Negative (Negative); Leukocyte Esterase,Urine Negative (Negative); Nitrite,Urine Negative (Negative); Protein,Urine Negative (Negative); Specific Gravity,Urine 1.008 (1.001-1.035); Urobilinogen,Urine <2.0 mg/dL (<2.0)
--- NOTE | 2017-12-22 23:09 | PN ---
PROGRESS NOTE DATE OF SERVICE: 12/22/2017. CHIEF COMPLAINT: The patient was admitted for hallucinations. He has had both visual and auditory hallucinations. He was making suicide threats. 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 He was referred by Dr. Chow, who follows him as an outpatient, and had been making medication changes. Patient has been doing fair. He had a quiet evening last night. He slept fairly well today. He has been up. He tends to keep to himself. He does not attend groups. He does not interact too much with others. He continues to report some issues with hallucinations. Overall, he feels that the problems are a little less. He does note that previously he had been on a higher dose of Effexor, namely 300mg daily, which he felt was helpful. He has not had problems with the increase of his Seroquel. He says the plan has been to increase his Seroquel up to a therapeutic range and to discontinue the Latuda as the other 2 had not been helpful. It is noteworthy that the patient is also on Namenda. It is difficult to say if that has complicated any of his psychiatric issues. He is unclear how much benefit he may get. He does have a complicated set of medications. He has not had change in his general health. He tolerates his psychotropic medications. MENTAL STATUS: Patient gave fair eye contact. Psychomotor activity was slowed. Speech was monotone. He answered questions with brief responses. His affect was somewhat constricted. His mood quiet and was difficult to say if he was distressed. ASSESSMENT: I will continue the current diagnosis and treatment plan. I will increase Seroquel to 300 mg at bedtime. At this point, I will continue his Effexor XR 150 mg a day, though consider increasing as per the patient's report. There is concern that the patient is on Namenda for cognitive issues, though also is on Klonopin, which the patient says he takes for sleep and help with anxiety. Klonopin may have negative effects on cognition. We will continue to focus on stabilization and discharge planning. MMODL / IJN: [id number] / MTDD
[2017-12-23 05:34] LABS: Amphetamine Screen,Urine Not Detected (NotDetected); Barbiturate Screen,Urine Not Detected (NotDetected); Benzodiazepines Screen,Urine Not Detected (NotDetected); Cocaine Screen,Urine Not Detected (NotDetected); Methadone Screen, Urine Not Detected (NotDetected); Opiate Screen,Urine Detected (NotDetected); Oxycodone Screen, Urine Not Detected (NotDetected); Phencyclidine Screen,Urine Not Detected (NotDetected); Tricyclic Antidepressant,Urine Not Detected (NotDetected); Urn Cannabinoid Scrn Not Detected (NotDetected)
[2017-12-23] MEDS: HYDROcodone/APAP 5-325MG 1 EACH TAB PO PRN ×2 (06:57→16:09)
[2017-12-23] MEDS: PANTOPRAZOLE 40 MG TABLET PO SCH (08:58)
[2017-12-23] MEDS: VENLAFAXINE HCL ER 150 MG CAP PO SCH (08:59)
[2017-12-23] MEDS: lamoTRIgine 25 MG TAB PO SCH ×2 (08:59→20:12)
[2017-12-23] MEDS: PREGABALIN 100 MG CAP PO SCH ×3 (09:00→20:11)
[2017-12-23] MEDS: OXYBUTYNIN XL 5 MG TAB.ER.24 PO SCH (09:00)
[2017-12-23] MEDS: MEMANTINE 10 MG TAB PO SCH (09:03)
[2017-12-23] MEDS ORDERED: VENLAFAXINE HCL ER 75 MG CAP PO STA (12:28)
--- NOTE | 2017-12-23 14:43 | PN ---
PROGRESS NOTE DATE OF SERVICE 12/23/2017. CHIEF COMPLAINT: The patient was admitted for hallucinations. He has had both visual and auditory hallucinations. He was making suicide threats. INTERVAL HISTORY: The patient has been doing fair. He seems to be doing a little better today. He had a quiet evening last night. He slept well. Today he has been up. He seems to be a little more connected to things going on around him. He is just a little bit more interactive with others. He has not been attending groups though encouraged to do so. He said that he had a conversation with his after our meeting yesterday. He says that he needed to look at some changes in how they structure things at home because he was not getting much sleep, then was needing to drive his son to work though that was risky because he was tired while he was driving. He does seem to be a little more reality based. Overall, he has not had change in his general health. He tolerates his psychotropic medications. MENTAL STATUS: Patient gave fair eye contact. Psychomotor activity was slow. Speech was monotone. He answered questions with brief responses. His thoughts were clear. It is noteworthy that he was just a little bit more fluid in his conversation and less withdrawn. His affect was somewhat blunted. His mood reserved. He was not significantly distressed. ASSESSMENT: I will continue the current diagnosis and treatment plan. We have increased the patient's Seroquel to 300 mg at bedtime as I discussed with him previously. I will increase his Effexor up to 225 mg a day. In addition, I will reduce Klonopin 0.5 mg at bedtime. We will continue to focus on stabilization and discharge planning. MMODL / IJN: [id number] /
[2017-12-23] MEDS: MEMANTINE 5 MG TAB PO SCH (20:12)
[2017-12-23] MEDS: QUEtiapine 100 MG TAB PO SCH (20:12)
[2017-12-23] MEDS: clonazePAM 0.5 MG TAB PO SCH (20:12)
[2017-12-24] MEDS: HYDROcodone/APAP 5-325MG 1 EACH TAB PO PRN ×2 (06:25→14:29)
[2017-12-24] MEDS: lamoTRIgine 25 MG TAB PO SCH ×2 (09:09→20:46)
[2017-12-24] MEDS: OXYBUTYNIN XL 5 MG TAB.ER.24 PO SCH (09:10)
[2017-12-24] MEDS: PREGABALIN 100 MG CAP PO SCH ×3 (09:10→20:47)
[2017-12-24] MEDS: MEMANTINE 10 MG TAB PO SCH (09:10)
[2017-12-24] MEDS: VENLAFAXINE HCL ER 75 MG CAP PO SCH (09:10)
[2017-12-24] MEDS: PANTOPRAZOLE 40 MG TABLET PO SCH (09:10)
--- NOTE | 2017-12-24 13:26 | PN ---
PROGRESS NOTE DATE OF SERVICE: 12/24/2017 CHIEF COMPLAINT: The patient was admitted for hallucinations. He has had both visual and auditory hallucinations. He was making suicide threats. INTERVAL HISTORY: Patient has been doing fair. He had a quiet evening last night. He said he slept fairly well today. He has been up and about. He seems to be doing a little bit better overall in his mood. He notes he has been getting himself around the unit. He does not interact too much with others. He is not inclined to attend groups. He does respond appropriately to 1:1 contact. He will occasionally make a group and will contribute at least to some extent in a group. He was able to discuss issues about discharge planning. A family meeting was held with the patient and his . He said they were able to talk about some ways of better managing their home situation that works better for the both of them. The patient feels his mood is improving. He has not had change in his general health. He tolerates his psychotropic medications. MENTAL STATUS: Patient gave fair eye contact. Psychomotor activity was slowed. Speech was monotone. He answered questions with brief responses. His thoughts were clear. Affect somewhat blunted. His mood reserved. It was difficult to say if he was distressed. ASSESSMENT: I will continue the current diagnosis and treatment plan. Will continue psychotropic medications the same. The patient appears to be making progress. He seems to be doing better with increasing Effexor to 225 mg a day. He has not had problems with reduction in Klonopin. I discussed that it would be appropriate for him to eventually go off of Klonopin altogether. We will continue to focus on stabilization and discharge planning. I would anticipate discharging the patient by the end of the week. MMODL / STEPHANIN: [id number] /
[2017-12-24] MEDS: QUEtiapine 100 MG TAB PO SCH (20:46)
[2017-12-24] MEDS: MEMANTINE 5 MG TAB PO SCH (20:46)
[2017-12-24] MEDS: clonazePAM 0.5 MG TAB PO SCH (20:46)
[2017-12-25] MEDS: HYDROcodone/APAP 5-325MG 1 EACH TAB PO PRN ×2 (06:02→14:00)
[2017-12-25 06:11] VITALS: RESP 16
[2017-12-25] MEDS: VENLAFAXINE HCL ER 75 MG CAP PO SCH (09:30)
[2017-12-25] MEDS: PANTOPRAZOLE 40 MG TABLET PO SCH (09:30)
[2017-12-25] MEDS: PREGABALIN 100 MG CAP PO SCH ×3 (09:30→20:35)
[2017-12-25] MEDS: OXYBUTYNIN XL 5 MG TAB.ER.24 PO SCH (09:30)
[2017-12-25] MEDS: lamoTRIgine 25 MG TAB PO SCH ×2 (09:30→20:34)
[2017-12-25] MEDS: MEMANTINE 10 MG TAB PO SCH (09:30)
[2017-12-25] MEDS ORDERED: QUEtiapine 50 MG TAB PO PRN (17:00)
[2017-12-25] MEDS: MELOXICAM 7.5 MG TAB PO SCH (17:27)
[2017-12-25] MEDS: MEMANTINE 5 MG TAB PO SCH (20:35)
[2017-12-25] MEDS: QUEtiapine 100 MG TAB PO SCH (20:35)
--- NOTE | 2017-12-25 22:12 | PN ---
PROGRESS NOTE DATE OF SERVICE: 12/25/2017. CHIEF COMPLAINT: The patient was admitted for hallucinations. He had auditory and visual hallucinations and was making suicide threats. INTERVAL HISTORY: Patient has been doing fair. He had a quiet evening last night. He slept well. Today he has been up. He comes out in the day area. He has been more interactive with others. He tries to attend 1 or 2 groups a day, he says. His mood is improved. He has a better outlook. His thoughts are clear. He says he feels more comfortable in his interactions with others. He does want to restart Mobic, which he had taken in the past for some of his pain complaints. He said he had been cautioned to not take it a year ago when he had surgery for revision of a lap band. He says that his contacted the family doctor and felt that it was reasonable for him to restart Mobic. When I reviewed issues relating to his medications, he was also comfortable with the idea of stopping Klonopin altogether. He says he would like something for anxiety when he is discharged that he might need to take as a p.r.n. He has not had change in his general health. He tolerates his psychotropic medications. MENTAL STATUS: Patient gave good eye contact. Psychomotor activity and speech were normal. His thoughts were clear. It was noted that he had a more fluid and interactive conversation. He had a calmer manner. He had a reasonable range of affect. His mood was even. He did appear to be distressed. ASSESSMENT: I will continue the current diagnosis and treatment plan. I will start the patient on Mobic 15 mg a day. In addition, I will add Seroquel 50 mg twice a day p.r.n. I will discontinue Klonopin. We reviewed issues regarding withdrawal issues that he may have from Klonopin. I advised the patient that over several weeks' time, he should see a lessening of withdrawal and overall improvement in issues relating to anxiety. Will plan to discharge the patient tomorrow. MMSANTI / STEPHANIN: [id number] /
[2017-12-26] MEDS: HYDROcodone/APAP 5-325MG 1 EACH TAB PO PRN ×2 (02:07→09:24)
[2017-12-26 02:27] VITALS: BP 108/76; PULSE 100; TEMP 97.4
[2017-12-26] MEDS: PANTOPRAZOLE 40 MG TABLET PO SCH (08:37)
[2017-12-26] MEDS: MEMANTINE 10 MG TAB PO SCH (08:38)
[2017-12-26] MEDS: OXYBUTYNIN XL 5 MG TAB.ER.24 PO SCH (08:38)
[2017-12-26] MEDS: MELOXICAM 7.5 MG TAB PO SCH (08:38)
[2017-12-26] MEDS: lamoTRIgine 25 MG TAB PO SCH (08:38)
[2017-12-26] MEDS: PREGABALIN 100 MG CAP PO SCH (09:26)
[2017-12-26] MEDS: VENLAFAXINE HCL ER 75 MG CAP PO SCH (09:26)
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
== END 2017-12-26 10:35 | disposition home or self-care (01) | DRG 885 ==
LOC: 3MHU 14:37
PROVIDERS: ADMIT Psychiatry & Neurology Psychiatry; ATTEND Psychiatry & Neurology Psychiatry
DX: F25.0 Schizoaffective disorder, bipolar type (principal); K74.60 Unspecified cirrhosis of liver; B19.20 Unspecified viral hepatitis C without hepatic coma; E78.5 Hyperlipidemia, unspecified; F41.0 Panic disorder [episodic paroxysmal anxiety]; G43.909 Migraine, unspecified, not intractable, without status migrainosus; G47.30 Sleep apnea, unspecified; S41.132S Puncture wound without foreign body of left upper arm, sequela; G83.24 Monoplegia of upper limb affecting left nondominant side; I10 Essential (primary) hypertension; K21.9 Gastro-esophageal reflux disease without esophagitis; K58.9 Irritable bowel syndrome, unspecified; L30.9 Dermatitis, unspecified; M19.90 Unspecified osteoarthritis, unspecified site; M79.7 Fibromyalgia; Z65.3 Problems related to other legal circumstances; Z79.899 Other long term (current) drug therapy; Z87.01 Personal history of pneumonia (recurrent); Z87.891 Personal history of nicotine dependence; Z91.5 Personal history of self-harm; Z98.84 Bariatric surgery status; Z79.891 Long term (current) use of opiate analgesic
CPT/HCPCS: 80053; 80061; 80306; 81003; 82248; 83036; 84443; 85025

== ENCOUNTER → 2018-02-16 | Outpatient (CLI) | payer MEDICARE ==
[2018-02-16 12:53] LABS: T4, Free (Free Thyroxine) 0.82 ng/dL (0.78-2.19)
[2018-02-16 15:22] LABS: Vitamin D 25 Hydroxy 17.5 ng/mL (30.0-100.0)
== END | disposition home or self-care (01) ==
LOC: LABWHC1 11:39
PROVIDERS: ATTEND Psychiatry & Neurology Neurology
DX: R53.83 Other fatigue (principal); Z87.438 Personal history of other diseases of male genital organs
CPT/HCPCS: 36415; 82306; 82607; 84402; 84403; 84439; 84443

== ENCOUNTER → 2018-03-20 | Outpatient (CLI) | payer MEDICARE ==
[2018-03-20 12:02] LABS: Appearance,Urine Clear (Clear); Bilirubin,Urine Negative (Negative); Blood,Urine Negative (Negative); Color,Urine Light Yellow; Glucose,Urine (UA) Negative (Negative); Ketones,Urine Negative (Negative); Leukocyte Esterase,Urine Negative (Negative); Nitrite,Urine Negative (Negative); Protein,Urine Negative (Negative); Specific Gravity,Urine 1.006 (1.001-1.035); Urobilinogen,Urine <2.0 mg/dL (<2.0)
== END | disposition home or self-care (01) ==
LOC: LABWHC1 11:25
PROVIDERS: ATTEND Psychiatry & Neurology Neurology
DX: N20.0 Calculus of kidney (principal); R52 Pain, unspecified
CPT/HCPCS: 81003

== ENCOUNTER → 2018-04-01 | Outpatient (CLI) | payer MEDICARE | END | disposition home or self-care (01) | LOC: RADMRIMAIN 20:51 | PROVIDERS: ATTEND Family Medicine | DX: Z53.9 Procedure and treatment not carried out, unspecified reason (principal) ==

== ENCOUNTER → 2020-01-17 | Outpatient (CLI) | payer BC, MEDICARE ==
--- NOTE | 2020-01-19 10:35 | P.ARTDOP ---
Arterial Doppler LOWER EXTREMITY ARTERIAL DOPPLER: DATE OF SERVICE: 01/17/2020 Reason for study: : Feet. Doppler waveforms: Multiphasic bilaterally throughout. Pulse volume recording: []. Pressure gradients: None. Ankle-brachial indices: Greater than 1 bilaterally. Toe brachial indices: [] on the right, [] on the left Impression: Normal study.
== END | disposition home or self-care (01) ==
LOC: RADUSWWP 14:08
PROVIDERS: ATTEND Family Medicine
DX: I73.00 Raynaud's syndrome without gangrene (principal); N52.8 Other male erectile dysfunction; R68.0 Hypothermia, not associated with low environmental temperature
CPT/HCPCS: 93922

== ENCOUNTER 2021-03-22 08:17 | Day surgery (SDC) | payer BC, MEDICARE ==
[2021-03-21 09:06] VITALS: BMI 33.7
[~2021-03-22 08:17] MED LIST changes: -DEXAMETHASONE SOD PHOSPHATE 10 MG/ML 1 ML VIAL IV ONE; -HYDROmorphone 1 MG/ML 1 ML SYRINGE IVP PRN; -LIDOCAINE 1% 20 ML VIAL (10MG/ML) FOR IV START INTRADERMA PRN; -ONDANSETRON 4 MG/2 ML VIAL IVP ONE; -Pre Op ABX Message 1 EACH MISC MISCELLANE ONE; -SCOPOLAMINE 1.5MG/72HR PATCH TRANSDERM ONE
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
[2021-03-22 08:46] VITALS: TEMP 97.6
[2021-03-22] MEDS ORDERED: PROPOFOL 10 MG/ML 50 ML VIAL IV ONE (09:34)
[2021-03-22] MEDS ORDERED: LIDOCAINE 1% INJ 10MG/ML (20 ML MDV) ONE (09:34)
--- NOTE | 2021-03-22 10:17 | P.PCN ---
Date of Procedure: 03/22/21 Description of Procedure: PREOPERATIVE DIAGNOSIS: Personal history of colon polyps Family history malignant colon polyps Colonoscopy screening POSTOPERATIVE DIAGNOSIS: Personal history of colon polyps Family history malignant colon polyps Colonoscopy screening Tubular adenoma cecum Tubular adenoma sigmoid colon OPERATION: Colonoscopy to the ileocecal valve and appendiceal orifice, cecum Colonoscopy with hot snare polypectomy SURGEON: Josefa Alfaro MD. ANESTHESIA: MAC. INDICATIONS: The patient is an 56-year-old male who presents family history of malignant colon polyps and personal history of colon polyps. Last colonoscopy 5 years. Benefits and risks were described and informed consent was obtained. DESCRIPTION OF PROCEDURE: The patient had undergone Suprep. The patient had been brought into the operating room and laid in the left lateral decubitus position. After adequate intravenous sedation, the rectum was examined with 2% lidocaine jelly. The prostate was unremarkable. External hemorrhoids were encountered. The rectal tone was within normal limits. No lesions were palpated in the rectal vault. An Olympus colonoscope was advanced until the cecum, ileocecal valve and appendiceal orifice were clearly viewed. The prep was good. Very much sigmoid diverticulosis was encountered. Colonic polyps were found and removed. No evidence of focal colitis was found. Retroflexion of the scope demonstrated grade 2 internal hemorrhoids without active bleeding or inflammation. The colon was desufflated. The patient had tolerated the procedure well. Withdrawal time was over 6 minutes. FINDINGS: Aronchick preparation quality scale 2 (1-5) Internal hemorrhoids, grade 2 with recent inflammation and bleeding External hemorrhoids, grade 1. No arteriovenous malformations. Sigmoid diverticulosis Removal of 3 polyps: - Snare polypectomy 25 cm from the anal verge, 5 mm tubulovillous adenoma polyp, sigmoid colon - Snare polypectomy and cecum 2, 3 to 4 mm flat villous adenoma polyp. No focal colitis. RECOMMENDATIONS: Repeat colonoscopy 3 years, 2023 Plan - Discharge Summary Discharge Rx Participant: No New Discharge Prescriptions: Continue Venlafaxine HCl ER [Effexor XR] 150 mg PO DAILY Levothyroxine Sodium 25 mcg PO DAILY NIFEdipine [NIFEdipine ER] 60 mg PO DAILY clonazePAM [KlonoPIN] 0.5 mg PO DAILY Cariprazine HCl [Vraylar] 4.5 mg PO DAILY Baclofen 10 mg PO TID Meloxicam [Mobic] 15 mg PO DAILY Discharge Medication List Baclofen 10 mg PO TID 02/06/21 [History] Cariprazine HCl [Vraylar] 4.5 mg PO DAILY 02/06/21 [History] Levothyroxine Sodium 25 mcg PO DAILY 02/06/21 [History] Meloxicam [Mobic] 15 mg PO DAILY 02/06/21 [History] NIFEdipine [NIFEdipine ER] 60 mg PO DAILY 02/06/21 [History] Venlafaxine HCl ER [Effexor XR] 150 mg PO DAILY 02/06/21 [History] clonazePAM [KlonoPIN] 0.5 mg PO DAILY 02/06/21 [History] Follow up Appointment(s)/Referral(s): Josefa Alfaro MD [STAFF PHYSICIAN] - As Needed Patient Instructions/Handouts: Colorectal Polyps (DC), Colonoscopy (DC) Activity/Diet/Wound Care/Special Instructions: Repeat colonoscopy 3 years, 2023 Discharge Disposition: HOME SELF-CARE
[2021-03-22 10:32] VITALS: BP 125/89; PULSE 75; RESP 16
== END 2021-03-22 11:18 | disposition home or self-care (01) ==
LOC: ORWHC2ENDO 08:17
PROVIDERS: ATTEND Surgery Plastic and Reconstructive Surgery
DX: Z12.11 Encounter for screening for malignant neoplasm of colon (principal); D12.0 Benign neoplasm of cecum; D12.5 Benign neoplasm of sigmoid colon; K64.1 Second degree hemorrhoids; K64.0 First degree hemorrhoids; K57.30 Diverticulosis of large intestine without perforation or abscess without bleeding; Z86.010 Personal history of colon polyps; Z80.0 Family history of malignant neoplasm of digestive organs; J44.9 Chronic obstructive pulmonary disease, unspecified; M79.7 Fibromyalgia; K21.9 Gastro-esophageal reflux disease without esophagitis; E78.5 Hyperlipidemia, unspecified; I10 Essential (primary) hypertension; K74.60 Unspecified cirrhosis of liver; M19.90 Unspecified osteoarthritis, unspecified site; Z87.01 Personal history of pneumonia (recurrent); G47.30 Sleep apnea, unspecified; E07.9 Disorder of thyroid, unspecified; G43.909 Migraine, unspecified, not intractable, without status migrainosus; Z87.891 Personal history of nicotine dependence; K58.9 Irritable bowel syndrome, unspecified; G81.90 Hemiplegia, unspecified affecting unspecified side; Z98.890 Other specified postprocedural states; Z86.19 Personal history of other infectious and parasitic diseases; Z98.84 Bariatric surgery status; Z90.49 Acquired absence of other specified parts of digestive tract; Z90.89 Acquired absence of other organs; Z98.52 Vasectomy status; Z97.2 Presence of dental prosthetic device (complete) (partial); Z83.3 Family history of diabetes mellitus; Z82.49 Family history of ischemic heart disease and other diseases of the circulatory system; Z81.1 Family history of alcohol abuse and dependence; Z79.1 Long term (current) use of non-steroidal anti-inflammatories (NSAID); Z79.890 Hormone replacement therapy; Z79.899 Other long term (current) drug therapy; Z88.8 Allergy status to other drugs, medicaments and biological substances; Z91.030 Bee allergy status; Z88.6 Allergy status to analgesic agent
CPT/HCPCS: 88305; 45385; J2001; J2704

== ENCOUNTER → 2021-12-24 | Outpatient (CLI) | payer BC, MEDICARE ==
--- NOTE | 2021-12-24 13:43 | CT ---
EXAMINATION TYPE: CT angio chest DATE OF EXAM: 12/24/2021 COMPARISON: Radiograph same date HISTORY: 56-year-old male R06.02, shortness of breath, difficulty breathing TECHNIQUE: Contiguous axial scanning of the chest performed with IV Contrast, patient injected with 1 00 mL of Isovue 370. Coronal/sagittal MIP reconstructions performed. CT DLP: 433.3 mGycm Automated exposure control for dose reduction was used. FINDINGS: The heart is normal size without pericardial effusion. No reflux of contrast into the hepatic veins. LAD coronary artery calcifications. Aorta normal caliber with mild atherosclerotic arch calcifications and bovine configuration to the ao rtic arch. Prominent right hilar lymph node at 1.6 cm, probably reactive. Otherwise, no thoracic lymphadenopathy by CT size criteria. Satisfactory opacification of the pulmonary artery system without evidence for pulmonary embolus. Multifocal irregular patchy and groundglass opacities with a peripheral and peribronchovascular predo minance. Some associated areas of distortion are noted. No pleural effusion or pneumothorax. Small to moderate size hiatal hernia. Cholecystectomy clips. Bones: Mild anterior endplate spondylosis lower thoracic spine. IMPRESSION: 1. NO EVIDENCE FOR PULMONARY EMBOLUS. 2. MULTIFOCAL IRREGULAR PATCHY AND GROUNDGLASS OPACITIES. SOME OF THESE CHANGES MAY BE MORE SUBACUTE OR CHRONIC. CORRELATE FOR ACUTE VERSUS CHRONIC COVID PNEUMONIA POSSIBLY WITH SOME UNDERLYING POSTINFE CTIOUS SCARRING.
== END | disposition home or self-care (01) ==
LOC: RADCTMAIN 12:39
PROVIDERS: ATTEND Internal Medicine
DX: R91.8 Other nonspecific abnormal finding of lung field (principal)
CPT/HCPCS: 71275; Q9967

== ENCOUNTER 2022-04-27 14:26 | Emergency (ER) | payer BC, MEDICARE ==
[2022-04-27 14:59] VITALS: TEMP 97.9
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
[2022-04-27 16:21] LABS: ALT 38 U/L (4-49); AST 49 U/L (17-59); African American GFR (CKD) >90 (>60 ml/min/1.73 sqM); Albumin 3.7 g/dL (3.5-5.0); Alkaline Phosphatase 97 U/L (38-126); Anion Gap 5 mmol/L; Blood Urea Nitrogen 17 mg/dL (9-20); Calcium 8.6 mg/dL (8.4-10.2); Carbon Dioxide 31 mmol/L (22-30); Chloride 103 mmol/L (98-107); Glucose 106 mg/dL (74-99); Magnesium 2.1 mg/dL (1.6-2.3); Non-African American GFR(CKD) >90 (>60 ml/min/1.73 sqM); Sodium 139 mmol/L (137-145); Total Bilirubin 0.3 mg/dL (0.2-1.3)
--- NOTE | 2022-04-27 16:23 | XR ---
EXAMINATION TYPE: XR chest 2V DATE OF EXAM: 04/27/2022 COMPARISON: 02/11/2022 HISTORY: Difficulty breathing TECHNIQUE: 2 views FINDINGS: There is some coarse interstitial density in the lung raymond. Heart size is normal. There a re no hilar masses. Mediastinum is normal. No pleural effusion. IMPRESSION: Increased density in both lung raymond consistent with mild interstitial infiltrate and atkinson bsegmental atelectasis which is increased compared to last exam. Normal heart.
[2022-04-27 16:28] LABS: INR 0.9 (<1.2); Prothrombin Time 10.1 sec (9.0-12.0)
[2022-04-27 16:34] LABS: HCT 41.3 % (39.0-53.0); HGB 13.8 gm/dL (13.0-17.5); MCH 30.7 pg (25.0-35.0); MCHC 33.3 g/dL (31.0-37.0); MCV 92.2 fL (80.0-100.0); Mean Platelet Volume 7.6; Platelet Count 199 k/uL (150-450); RBC 4.48 m/uL (4.30-5.90); RDW 12.9 % (11.5-15.5); WBC 5.6 k/uL (3.8-10.6)
[2022-04-27 17:09] LABS: Eosinophils # (M) 0.11 k/uL (0-0.7); Lymphocytes # (M) 2.13 k/uL (1.0-4.8); Monocytes # (M) 0.56 k/uL (0-1.0); Neutrophils % (M) 50 %; Nucleated Red Blood Cells 0 /100 WBC (0-0); Total Cells Counted 100
--- NOTE | 2022-04-27 18:14 | CT ---
EXAMINATION TYPE: CT chest angio for PE DATE OF EXAM: 04/27/2022 COMPARISON: 12/24/2021 HISTORY: elevated d-dimer CT DLP: 765.8 mGycm Automated exposure control for dose reduction was used. CONTRAST: Performed with IV Contrast, patient injected with 100 mL of Isovue 370. Images obtained from the thoracic inlet to the diaphragm with IV contrast. There are Three-D postproc essed images. There is some patchy interstitial infiltrates and atelectasis in the lung raymond bilaterally. No pulm onary consolidation. No pleural effusion. Heart size is normal. No pericardial effusion. There is no evidence of filling defect in the pulmonary arteries. There is no mediastinal adenopathy. There are no hilar masses. Thoracic aorta is intact. No aneurysm or dissection. There is minor spurring in the thoracic spine. Sternum is intact. No compression fract ure. IMPRESSION: No evidence of pulmonary embolism. Patchy bilateral interstitial infiltrates and atelectasis. No susp icious pulmonary mass. Lung disease not significantly different than old exam.
[2022-04-27 18:22] VITALS: RESP 20
--- NOTE | 2022-04-27 18:43 | US ---
EXAMINATION TYPE: US venous doppler duplex LE DATE OF EXAM: 04/27/2022 6:26 PM COMPARISON: NONE CLINICAL HISTORY: elevated dimer, leg swelling. eval for dvt. Leg swelling SIDE PERFORMED: Bilateral TECHNIQUE: The lower extremity deep venous system is examined utilizing real time linear array sonog bobby with graded compression, doppler sonography and color-flow sonography. VESSELS IMAGED: Common Femoral Vein Deep Femoral Vein Greater Saphenous Vein * Femoral Vein Popliteal Vein Small Saphenous Vein * Proximal Calf Veins (* superficial vessels) Right Leg: Negative for DVT Left Leg: Negative for DVT IMPRESSION: No evidence of deep vein thrombosis in both legs.
[2022-04-27 19:09] VITALS: BP 132/85; PULSE 70
== END 2022-04-27 19:12 | disposition home or self-care (01) ==
LOC: EC 14:26
DX: R60.0 Localized edema (principal); R06.02 Shortness of breath; E07.9 Disorder of thyroid, unspecified; I10 Essential (primary) hypertension; J44.9 Chronic obstructive pulmonary disease, unspecified; K21.9 Gastro-esophageal reflux disease without esophagitis; M19.90 Unspecified osteoarthritis, unspecified site; M79.7 Fibromyalgia; Z87.891 Personal history of nicotine dependence; Z88.6 Allergy status to analgesic agent; Z88.8 Allergy status to other drugs, medicaments and biological substances; Z91.030 Bee allergy status; Z79.890 Hormone replacement therapy; Z79.899 Other long term (current) drug therapy
CPT/HCPCS: 36415; 93005; 85379; 83880; 80053; 83735; 84484; 85025; 85610; 85730; 71046; 93970; 71275; 99285; Q9967